=== PATIENT | female | born 1980 | race Caucasian/White ===

== ENCOUNTER 2018-07-04 09:22 | Emergency (ER) | payer SELFPAY ==
[2018-07-04 09:23] VITALS: BP 117/82; PULSE 64; RESP 18; TEMP 36.6; O2SAT 100; BMI 26.0
[2018-07-04] MEDS: Lidocaine/Epi/Tetracaine 50 ML 1 APPLIC TOPICAL (09:56)
--- NOTE | 2018-07-04 11:44 | ED.VISSUMM ---
- ER Visit Summary Date of Service: 07/04/18 Chief Complaint: MRSA infection in the right calf surgical wound History of Present Illness: The patient is a 38 F no senior past medical history. Approximately a month ago had an excision of the right calf melanoma by Dr. Bond the spice cleaner. Patient initially did well then developed an MRSA infection at the site. Has been on different antibiotics and currently on doxycycline. She has been on that now for 2 weeks of a 4 week course. She has pus like discharge. Physical Examination: Well appearing female vital signs are stable afebrile. Does not look septic or toxic. No acute distress. H EENT exam unremarkable. Neck nontender. Lungs clear to auscultation bilaterally. Heart regular rhythm no murmur. Abdomen soft nontender. Moving all 4 extremities. Neurovascularly intact. Right medial proximal calf is a surgical wound. With puslike drainage. There is tenderness to the wound. There is indurated tissue. There is no cellulitis. There is no lymphangitic streaking. Otherwise exam is unremarkable. Test Results: None Emergency Department Course and Treatment: Wound was locally anesthetized with topical let then subcu lidocaine. I made a 1-2 cm incision in the prior surgical site. I then probed and there was no pus pocket. I placed 1/4 inch gauze to leave the wound open to help it drain. I was unable to express any significant amount of pus. Patient tolerated procedure well. Treatment Plan: I spoke with Dr. Bond. He is available today in the office for the patient to follow-up. She will continue her doxycycline since it has some of the best coverage for MRSA. She will follow up with him in the office. Disposition: Discharge Impression: MRSA infection of recent melanoma resection site. Incision and drainage by ER. This note was generated with [employer] dictation software. It may contain incorrect words, spelling, and punctuation that were not noted in review of the chart prior to signing ED Disposition - Plan for ED Patient: Chief Complaint: Cellulitis Referrals: Abiodun Harmon [Primary Care Provider] -
--- NOTE | 2018-07-04 11:47 | ED.DCSUM_ITS ---
- ER Visit Summary Date of Service: 07/04/18 Chief Complaint: MRSA infection in the right calf surgical wound History of Present Illness: The patient is a 38 F no senior past medical history. Approximately a month ago had an excision of the right calf melanoma by Dr. 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 Patient initially did well then developed an MRSA infection at the site. Has been on different antibiotics and currently on doxycycline. She has been on that now for 2 weeks of a 4 week course. She has pus like discharge. Physical Examination: Well appearing female vital signs are stable afebrile. Does not look septic or toxic. No acute distress. H EENT exam unremarkable. Neck nontender. Lungs clear to auscultation bilaterally. Heart regular rhythm no murmur. Abdomen soft nontender. Moving all 4 extremities. Neurovascularly intact. Right medial proximal calf is a surgical wound. With puslike drainage. There is tenderness to the wound. There is indurated tissue. There is no cellulitis. There is no lymphangitic streaking. Otherwise exam is unremarkable. Test Results: None Emergency Department Course and Treatment: Wound was locally anesthetized with topical let then subcu lidocaine. I made a 1-2 cm incision in the prior surgical site. I then probed and there was no pus pocket. I placed 1/4 inch gauze to leave the wound open to help it drain. I was unable to express any significant amount of pus. Patient tolerated procedure well. Treatment Plan: I spoke with Dr. Bond. He is available today in the office for the patient to follow-up. She will continue her doxycycline since it has some of the best coverage for MRSA. She will follow up with him in the office. Disposition: Discharge Impression: MRSA infection of recent melanoma resection site. Incision and drainage by ER. This note was generated with [employer] dictation software. It may contain incorrect words, spelling, and punctuation that were not noted in review of the chart prior to signing ED Disposition - Plan for ED Patient: Chief Complaint: Cellulitis Referrals: Abiodun Harmon [Primary Care Provider] -
--- NOTE | 2018-07-04 11:50 | ED.DEP ---
ED Disposition - Plan for ED Patient: Disposition: Home or Assisted Living Chief Complaint: Cellulitis Referrals: Stevenson Bond [NON-STAFF] - As soon as possible Additional Instructions: Continue current antibiotics. Follow-up with Dr. Bond today if at all possible.
[2018-07-04 12:15] VITALS: PULSE 72; RESP 16; O2SAT 100
== END 2018-07-04 12:16 | disposition home or self-care (01) ==
PROVIDERS: Emergency Provider Emergency Medicine; Family Provider Family Medicine; PCP Family Medicine
DX: T81.4XXA Infection following a procedure, initial encounter (principal); B95.62 Methicillin resistant Staphylococcus aureus infection as the cause of diseases classified elsewhere; Z79.899 Other long term (current) drug therapy; Z85.820 Personal history of malignant melanoma of skin
CPT/HCPCS: 10060; 99285

== ENCOUNTER → 2019-01-04 16:02 | Outpatient (CLI) | payer SELFPAY ==
[2019-01-09 11:09] LABS: HPV Reflexed? NOT INDICATED
== END ==
PROVIDERS: Visit Provider Obstetrics & Gynecology
DX: Z12.4 Encounter for screening for malignant neoplasm of cervix (principal)
CPT/HCPCS: 88175; G0145

== ENCOUNTER → 2019-01-15 13:26 | Outpatient (CLI) | payer SELFPAY ==
[2019-01-15 17:28] LABS: Hematocrit 39.6 % (37-47); Hemoglobin 13.2 g/dl (12.0-15.0); Mean Corp Hgb Conc 33.3 g/gl (32-36); Mean Corpuscular Hgb 30.3 pg (27.0-32.0); Mean Corpuscular Volume 90.8 fL (81-99); Mean Platelet Vol. 10.4 fl (6.2-12.0); Platelet Count 281 K/mm3 (150-450); RBC Distribution Width CV 12.4 % (11.6-14.6); RBC Distribution Width SD 41.3 fl (35.1-43.9); Red Blood Count 4.36 M/mm3 (4.2-5.4); Scan Indicated on CBC? Y/N NO; White Blood Count 7.1 K/mm3 (4.4-11.0)
[2019-01-15 17:49] LABS: ALB/GLOB Ratio 1.2 RATIO (0.9-2.4); AST(SGOT) 13 U/L (15-37); Alanine Aminotransfer ALT/SGPT 19 U/L (13-56); Alkaline Phosphatase 80 U/L (45-117); Anion Gap 3 (5-15); BUN 18 mg/dL (7-18); BUN/Creat Ratio 25.1 RATIO (10-20); Calcium,Total 8.4 mg/dL (8.5-10.1); Chloride 107 mmol/L (98-107); Creatinine, Serum 0.72 mg/dL (0.55-1.02); EST Glomerular Filtration Rate 96 mL/min (>60); Est Glom Filt Rate - Afr Amer 117 mL/min (>60); Globulin 3.2 g/dL (2.2-4.2); Glucose 85 mg/dL (74-106); Potassium 3.6 mmol/L (3.5-5.1); Protein, Total 7.2 g/dL (6.4-8.2); Sodium Level 137 mmol/L (136-145); Thyroid Stim Hormone (TSH) 1.57 uIU/mL (0.358-3.74)
== END ==
PROVIDERS: Visit Provider Obstetrics & Gynecology
DX: G47.00 Insomnia, unspecified (principal); N39.0 Urinary tract infection, site not specified
CPT/HCPCS: 36415; 80053; 84443; 85027; 87086; 87088; 87186

== ENCOUNTER 2025-05-06 13:57 | Emergency (ER) | payer OTHER, SELFPAY ==
[2025-05-06 13:57] VITALS: BP 115/83; PULSE 87; RESP 18; TEMP 36.8; O2SAT 100; BMI 23.7
--- NOTE | 2025-05-06 15:13 | EX.ED.DYSGE1 ---
HPI History of Present Illness Chief Complaint: Complaint Informant: patient Onset/Context/Timing Onset: Days Context: Gradual Onset Timing: Continuous Quality: Dull Location: Bilateral flank Worsened by: Nothing Relieved by: Nothing Narrative Narrative: Patient presents with kidney pain that has been getting worse over the past few days. Patient states it is gradually getting worse. Patient describes it as dull. Patient states it is worse on the right but is also on the left. Patient states nothing makes it worse and nothing makes it better. Patient denies any dysuria or hematuria. Patient denies any fevers or chills. Patient does admit to a mild sore throat. Patient admits to some nausea but denies any vomiting. PFSH PFSH Medical History FH: cholecystectomy Right knee skin infection Melanoma Medical History no medical history Home Medications ?Medication ?Instructions ?Recorded ?Last Taken ?Type loratadine-pseudoephedrine ER 10 1 tab PO DAILY 02/24/16 07/03/18 History mg-240 mg tablet,extended [id number] (Loratadine-D) multivitamin (Daily Multiple 1 ea PO DAILY 02/24/16 07/03/18 History tablet) omeprazole 20 mg capsule,delayed 20 mg PO DAILY 02/24/16 07/03/18 History release dextroamphetamine-amphetamine ER 1 cap PO 05/06/25 Unknown History 30 mg 24hr capsule,extend release hydrocodone-acetaminophen 5-325mg 1 tab PO Q6H PRN PRN Pain 3 days 05/06/25 Unknown Rx 5mg-325mg #10 TABLETS Allergy/AdvReac Type Severity Reaction Status Date / Time No Known Allergies Allergy Verified 05/06/25 14:00 Family History no significant family his Surgical History History of appendectomy H/O tubal ligation Surgical History no surgical history Social History Smoking Status: Former smoker ROS ROS ED Constitutional Constitutional ED: Denies chills or fever(s) Eyes Eyes: Denies blurry vision or change in vision ENT ENT ED: Reports sore throat; Denies rhinorrhea Cardiovascular Cardiovascular: Denies chest pain or palpitations Respiratory/Chest Respiratory/Chest: Denies cough or dyspnea Gastrointestinal Gastrointestinal: Reports nausea; Denies vomiting Genitourinary Genitourinary ED: Denies dysuria or hematuria Musculoskeletal Musculoskeletal: Reports back pain; Denies neck pain Integumentary Denies abscess or rash Neurologic Neurologic: Denies headache(s) or weakness Allergic/Immunologic Allergic/Immunologic ED: Denies mouth swelling or urticaria EXAM Physical Exam Const Vital Signs: 05/06/25 13:57 05/06/25 15:57 05/06/25 17:00 Temperature 98.3 F Temperature Source Oral Pulse Rate 87 68 80 Respiratory Rate 18 Blood Pressure 115/83 H 110/72 110/85 H Blood Pressure Mean 93 84 93 Pulse Ox 100 100 Oxygen Delivery Method Room Air Nasal Cannula Oxygen Flow Rate (L/min) 4 05/06/25 18:37 Temperature 98.3 F Temperature Source Pulse Rate 80 Respiratory Rate 18 Blood Pressure 110/85 H Blood Pressure Mean 93 Pulse Ox 100 Oxygen Delivery Method Oxygen Flow Rate (L/min) Positive well nourished and well developed General Appearance ED: well developed and NAD HEENT Reports moist mucous membranes Neck supple and no JVD Resp normal respiratory effort and clear to auscultation bilaterally Cardio regular rate and regular rhythm GI non-tender and non-distended Palpation: soft Back/Spine Back/Spine Narrative: There is no midline lumbar tenderness. There is no edema or ecchymosis. Range of motion was limited in all motions of the entire spine secondary to pain. Straight leg raises were negative bilaterally. General Back: CVA tenderness bilateral (Mild, right worse than left) Extremity normal to inspection General Extremety ED: Negative for edema or tenderness General Extremity: Negative for edema Neuro oriented x3, CN's II-XII intact bilaterally and no sensory deficits noted Sensorium / Orientation: alert Motor Exam: strength 5/5 throughout Psych mental status grossly normal MDM MDM MDM Narrative Medical decision making narrative: Differential diagnosis includes ureteral calculus, pyelonephritis, musculoskeletal pain, electrolyte abnormality, kidney injury. CBC will be obtained to assess for leukocytosis and anemia. Basic metabolic profile will be obtained to assess for electrolyte abnormality and renal function. Urinalysis will be obtained to assess for urinary tract infection and hematuria. CT scan of the abdomen and pelvis will be obtained to assess for ureteral calculus and pyelonephritis. Serum hCG will be obtained to assess for . History & Record Review Additional record(s) reviewed:: Prior ED visit and Prior labs Lab Data Attestation: I reviewed the patient's lab results. Lab results narrative: CBC was reviewed and was within normal. Basic metabolic profile was reviewed and was within normal limits. Serum hCG was reviewed and was negative. Urinalysis was reviewed. There are positive nitrites and 1+ bacteria. There are 05 white blood cells. Leukocyte esterase was negative. Labs: Laboratory Results - last 24 hr 05/06/25 05/06/25 05/06/25 14:18 14:19 15:31 WBC 7.2 RBC 4.23 Hgb 12.8 Hct 37.9 MCV 89.6 MCH 30.3 MCHC 33.8 RDW Std Deviation 38.6 RDW Coeff of Issa 11.9 Plt Count 275 MPV 10.2 Immature Gran % (Auto) 0.100 Neut % (Auto) 57.2 Lymph % (Auto) 31.6 [place] % (Auto) 7.7 Eos % (Auto) 2.8 Baso % (Auto) 0.6 Absolute Neuts (auto) 4.1 Absolute Lymphs (auto) 2.26 Nucleated RBC % 0 Sodium 139 Potassium 3.4 Chloride 104 Carbon Dioxide 23.9 Anion Gap 11 BUN 16 Creatinine 0.72 Estim Creat Clear Calc 93.34 Est GFR (MDRD) Non-Af 106 BUN/Creatinine Ratio 22.5 H Glucose 77 Calcium 9.0 Serum , Qual NEGATIVE Urine Color Yellow Urine Clarity Clear Urine pH 6.0 Ur Specific [place] 1.025 Urine Protein 30 H Urine Glucose (UA) Normal Urine Ketones Negative Urine Occult Blood Negative Urine Nitrite Positive H Urine Bilirubin Negative Urine Urobilinogen Normal Ur Leukocyte Esterase Negative Urine RBC 0-5 SEEN Urine WBC 0-5 SEEN Ur Squamous Epith Cells 0-5 SEEN Urine Bacteria 1+ Urine Mucus 2+ Radiography Diagnostic Testing: Clinical Impression(s) from Imaging Studies Abdomen/Pelvis CT 05/06/25 15:19 IMPRESSION: No bowel obstruction or active inflammatory process identified. No urolithiasis or hydroureteronephrosis on either side. Reading Location: [facility] CT scan of the abdomen and pelvis was obtained. There is no evidence of bowel obstruction or perforation. There is no ureteral calculus or hydronephrosis noted. There is no free air or free fluid. This was interpreted by the radiologist and was also independently reviewed by myself. Treatment and Re-Evaluation :: Patient was given IV fluids and Toradol. Patient was advised of her findings. Patient was advised that this could be musculoskeletal pain. Patient was instructed to take Tylenol or ibuprofen as needed for pain. Patient was instructed to follow-up with her primary care physician in 5 to 7 days for further evaluation. Patient understood and was agreeable with the plan. All questions were answered. Discharge Plan Triage Chief Complaint: Complaint ED Provider: Raza Estrella Dx/Rx/DC Orders Clinical Impression: Bilateral flank pain, Elevated blood pressure reading Instructions: ED Flank Pain, Uncertain Cause Prescriptions: New hydrocodone-acetaminophen 5-325 mg tablet 1 tab PO Q6H PRN PRN (Reason: Pain) 3 Days Qty: 10 0RF No Action multivitamin [Daily Multiple] 1 EACH tablet 1 ea PO DAILY loratadine-pseudoephedrine [Loratadine-D] 1 TABLET tablet 1 tab PO DAILY omeprazole 20 MG capsule 20 mg PO DAILY dextroamphetamine-amphetamine 30 mg capsule,extended release 24hr 1 cap PO Primary Care Provider: Care Physician,No Primary Referrals: Care Physician,No Primary [Primary Care Provider] - Print Language: Mohawk Disposition Disposition: Home, Self Care Discharge Date/Time: 05/06/25 18:53
--- NOTE | 2025-05-06 15:19 | CT_ITS ---
PROCEDURE: ABDOMEN/PELVIS WITHOUT CONT 05/06/2025 REASON FOR EXAM: FLANK PAIN TECHNIQUE: ABDOMEN/PELVIS WITHOUT CONT Noncontrast technique limits evaluation of the abdominal and pelvic viscera. Coronal and Sagittal reconstruction series were provided. One or more dose reduction techniques were used (e.g., Automated exposure control, adjustment of the mA and/or kV according to patient size, use of iterative reconstruction technique). RADIATION DOSE SUMMARY: CTDlvol: 6.17 mGy DLP: 291.1 mGycm COMPARISON: None. FINDINGS: Lung bases: Clear. Liver: Unremarkable. Gallbladder: Surgically absent. Spleen: Normal size and morphology. Pancreas: Unremarkable. Adrenals: Unremarkable. Kidneys: Normal in size. No urolithiasis or hydroureteronephrosis identified on either side. Few scattered pelvic phleboliths noted. Bladder: Unremarkable, no bladder calculus is seen. Reproductive Organs: Uterus and adnexae appear within normal limits. Bowel: Unremarkable. No evidence of obstruction or active inflammatory process. Appendix is surgically absent with pericecal chain suture material. Lymph nodes: No suspicious lymph node enlargement. Vasculature: The abdominal aorta and IVC contours are normal. Noncontrast technique otherwise limits evaluation. Peritoneum / Retroperitoneum: No ascites or free air. Bones: No significant abnormality. CT/Abdomen/Pelvis without Cont IMPRESSION: No bowel obstruction or active inflammatory process identified. No urolithiasis or hydroureteronephrosis on either side. Reading Location: [id number]
[2025-05-06] MEDS: 0.9% Normal Saline (1000mL) 1,000 ML 1000 ML IV (15:52)
[2025-05-06 15:57] VITALS: BP 110/72; PULSE 68; O2SAT 100
[2025-05-06 15:57] LABS: Hematocrit 37.9 % (37-47); Hemoglobin 12.8 g/dL (12.0-15.0); Immature Granulocytes Count 0.010 X10^3/uL (0.0-0.0); Mean Corp Hgb Conc 33.8 g/dL (32-36); Mean Corpuscular Volume 89.6 fL (81-99); Mean Platelet Vol. 10.2 fl (6.2-12.0); NRBC Flagged by Analyzer 0 % (0-5); Platelet Count 275 K/mm3 (150-450); RBC Distribution Width CV 11.9 % (11.6-14.6); RBC Distribution Width SD 38.6 fl (35.1-43.9); Red Blood Count 4.23 M/mm3 (4.2-5.4); White Blood Count 7.2 K/mm3 (4.4-11.0)
[2025-05-06 15:59] LABS: Color, Urine Yellow (Yellow); Glucose, Dipstick Normal (Normal); Ketone-Dipstick Negative (Negative); Leukocyte Esterase-Dipstick Negative /ul (Negative); Nitrite-Dipstick Positive (Negative); Occult Blood-Urine Negative /ul (Negative); Protein-Dipstick 30 mg/dl (Negative); Specific Gravity, Urine 1.025 (1.002-1.030); Urine Bilirubin Dipstick Negative (Negative)
[2025-05-06 16:23] LABS: Anion Gap 11 (5-15); BUN 16 mg/dL (4-19); BUN/Creat Ratio 22.5 RATIO (10-20); Calcium,Total 9.0 mg/dL (7.6-11.0); Carbon Dioxide 23.9 mmol/L (21.0-32.0); Chloride 104 mmol/L (98-108); Estimated Creatinine Clearance 93.34 ml/min (50-250); Glucose 77 mg/dL (70-99); Potassium 3.4 mmol/L (3.3-5.1)
[2025-05-06 16:48] LABS: Internal QC Validated? YES +Cl - CLEAR BKGD; Pregnancy, Serum, hCG Quali. NEGATIVE Negative
[2025-05-06 16:49] LABS: Record Kit Lot#, Serum Preg. 962302
[2025-05-06 17:00] VITALS: BP 110/85; PULSE 80
[2025-05-06 17:07] LABS: Red Blood Cells-Urine 0-5 SEEN /hpf (0-5)
[2025-05-06 17:08] LABS: Mucous, Urine 2+ /hpf (<or=2+); Squamous Epithelial Cells - UA 0-5 SEEN /hpf (5-10)
[2025-05-06 18:37] VITALS: BP 110/85; PULSE 80; RESP 18; TEMP 36.8; O2SAT 100
== END 2025-05-06 18:53 | disposition home or self-care (01) ==
PROVIDERS: Emergency Provider Emergency Medicine; Visit Provider Emergency Medicine
DX: R10.9 Unspecified abdominal pain (principal); R03.0 Elevated blood-pressure reading, without diagnosis of hypertension; Z87.891 Personal history of nicotine dependence
CPT/HCPCS: 74176; 80048; 81001; 84703; 85025; 96361; 96374; 99283; A4216

== ENCOUNTER → 2025-05-13 | Outpatient (CLI) | payer OTHER, SELFPAY ==
[2025-05-16 00:07] LABS: HPV APTIMA, High Risk Negative (Negative)
[2025-05-16 06:08] LABS: Chlamydia By Nucleic Acid AMP Negative (Negative); Gonococcus By Nucleic Acid AMP Negative (Negative)
== END | disposition home or self-care (01) ==
LOC: LABSPEC 16:13
PROVIDERS: Referring Provider Nurse Practitioner Family; Visit Provider Nurse Practitioner Family
DX: Z12.4 Encounter for screening for malignant neoplasm of cervix (principal); Z11.3 Encounter for screening for infections with a predominantly sexual mode of transmission
CPT/HCPCS: 87491; 87591; 87624; 88175; G0145

== ENCOUNTER → 2025-05-17 | Outpatient (CLI) | payer OTHER, SELFPAY ==
--- NOTE | 2025-05-17 08:30 | BI_ITS ---
EXAM: SCRN MAMM (CAD)W/NATHAN BILAT DATE: 05/17/2025 CLINICAL HISTORY: F, Age 44 y/o , SCREENING BREAST CANCER TECHNIQUE: SCRN MAMM (CAD)W/NATHAN BILAT COMPARISON: Baseline examination, no priors. FINDINGS: TISSUE DENSITY: There are scattered areas of fibroglandular density. Bilateral Breast Mammographic Findings: No significant masses, calcifications or other abnormalities are identified. BI/SCRN MAMM (CAD)W/NATHAN BILAT IMPRESSION: There is no mammographic evidence of malignancy. OVERALL FINAL ASSESSMENT BI-RADS 1: NEGATIVE. RECOMMENDATION: Routine annual follow-up in 1 Year A letter with findings and recommendations will be mailed to the patient. Reading Location: [id number]
[2025-05-17 09:55] LABS: Hematocrit 40.3 % (37-47); Hemoglobin 13.5 g/dL (12.0-15.0); Immature Granulocytes Count 0.010 X10^3/uL (0.0-0.0); Mean Corp Hgb Conc 33.5 g/dL (32-36); Mean Corpuscular Volume 90.2 fL (81-99); Mean Platelet Vol. 9.7 fl (6.2-12.0); NRBC Flagged by Analyzer 0 % (0-5); Platelet Count 305 K/mm3 (150-450); RBC Distribution Width CV 11.8 % (11.6-14.6); RBC Distribution Width SD 38.5 fl (35.1-43.9); Red Blood Count 4.47 M/mm3 (4.2-5.4); White Blood Count 5.3 K/mm3 (4.4-11.0)
--- OUTSIDE RECORDS SUMMARY | 2025-05-17 10:55 | XMS RPT_ITS | CCD ---
Author Organization [facility] Care Team Providers Care Warp Placer Name Role Phone Required, No Pcp Unavailable Unavailable Ryan Paulino Unavailable Unavailable Stephen Rosa Unavailable Unavailable Lora, Ms. Ryan Salcido Attending Alfonso Rivera, Ms. Yanet Noel Attending Unavailable AMANDA ADAN Attending Unavailable BRITTON, PHYSICIAN Primary Care Unavailable BASSEM URRUTIA Admitting Unavailab GLENN Farr Consulting Unavailab lucero JARQUIN, PHYSICIAN Primary Care Unavailable KHOA WISEMAN Attending Unavailab AMANDA Nguyen Referring Unavailable Dr. Raza Estrella DO Emergency Provider [phone] Care Physician, No Primary Primary Care Provider Unavailable Dr. Raza Estrella DO Attending Provider [phone] Cindy Gore Attending Provider Care Physician, No Primary Referring Provider Un available Care Physician, No Primary Primary Care Unava ilable Cindy Menchaca Attending Unavailable Care Physician, No Primary Referring Unava ilable Care Physician, No Primary Primary Care Unava ilRaza Rowland Attending Unavailable Care Physician, No Primary Primary Care Unava ilable Cindy Menchaca Referring Unavailable Cindy Menchaca Attending Unavailable Medications Current Medications Medication Drug Class(es) Dates Sig (Normalized) Sig (Original) acetaminophen 325 mg / HYDROcodone bitartrate 5 mg oral tablet (2 sources) Opioid Agonist Start: 05-06-2025 take 1 tablet by mouth every six hours as needed for pain Hydrocodone-Aceta minophen 5-325 mg tablet Active 1 {tbl} PO EVERY 6 HOURS NEEDED as needed for Pain 10 3 0 May 06, 2025 Bilateral flank pain Unspecified abdominal pain 24 hr amphetamine aspartate 7.5 mg / amphetamine sulfate 7.5 mg / dextroamphetamine saccharate 7.5 mg / dextroamphetamine sulfate 7.5 mg extended release oral capsule (2 sources) Central Nervous System Stimulant Start: 05-06-2025 Dextroamphetamine -Amphetamine 30 mg capsule,extended release 24hr Active 1 NMA PO May 06, 2025 12:00am Cetirizine (3 sources) Histamine-1 Receptor Antagonist ZyrTEC Quantity: 0 Refills: 0 Ordered: 14-Mar-2023 Kaitlynn Larios Generic Substitution Allowed take 1 tablet by mouth once samara y ZyrTEC 10 mg oral tablet ; 1 tab(s) orally once a day Quantity: 0 Refills: 0 Ordered: 13-Apr-2021 Ramesh Leary Status: Discontinued Generic Substitution Allowed ZyrTEC Quantity: 0 Refills: 0 Ordered: 20-May-2020 Kaitlynn Larios Generic Substitution Allowed levoFLOXacin 500 mg oral tablet (1 source) Quinolone Antimicrobial Start: 04-13-2021 End: 04-22-2021 take 1 tablet by mouth once daily levoFLOXacin 500 mg oral tablet ; 1 tab(s) orally once a day Quantity: 10 Refills: 0 Ordered: 13-Apr-2021 Stephen Rosa Start: 13-Apr-2021 End: 22-Apr-2021 Generic Substitution Allowed Comments: Avoid prolonged or excessive exposure to direct and/or artificial sunlight while taking this medication.Do not take dairy products, antacids, or iron preparations within one hour of this medication.Finish all this medication unless otherwise directed by prescriber.May cause drowsiness or dizziness.Medication should be taken with plenty of water. Comment on above: Avoid prolonged or e xcessive exposure to direct and/or artificial sunlight while taking this medication.Do not take dairy products, antacids, or iron preparations within one hour of this medication.Finish all this medication unless otherwise directed by prescriber.May cause drowsiness or dizziness.Medication should be taken with plenty of water. 24 hr loratadine 10 mg / pseudoephedrine sulfate 240 mg extended release oral tablet (2 sources) alpha-Adrenergic Agonist Start: 02-24-2016 take 1 tablet by mouth once daily Loratadine-Pseudoephedri ne (Claritin-D 24 Hr) 1 TABLET tablet Active 1 {tbl} PO DAILY February 24, 2016 12:00am Multivitamin (Daily Multiple Vitamin) 1 EACH tablet (2 sources) Start: 02-24-2016 take 1 tablet by mouth once daily Multivitamin (Daily Multiple Vitamin) 1 EACH tablet Active 1 NMA PO DAILY February 24, 2016 12:00am omeprazole 20 mg delayed release oral capsule (5 sources) Proton Pump Inhibitor Start: 02-24-2016 take 1 capsule by mouth once daily Omeprazole 20 MG capsule Active 20 mg PO DAILY February 24, 2016 12:00am omeprazole Quant ity: 0 Refills: 0 Ordered: 14-Mar-2023 Kaitlynn Larios Generic Substitution Allowed take 1 capsule by mouth once saúl ly omeprazole 10 mg oral delayed release capsule ; 1 cap(s) orally once a day Quantity: 0 Refills: 0 Ordered: 13-Apr-2021 Bowling, Melanic Status: Discontinued Generic Substitution Allowed ondansetron 4 mg disintegrating oral tablet (2 sources) Serotonin-3 Receptor Antagonist Start: 06-09-2023 take 1 tablet by mouth every six hours ondansetron 4 mg oral tablet, disintegrating ; 1 tab(s) orally every 6 hours Quantity: 10 Refills: 0 Ordered: 09-Jun-2023 Ryan Paulino Start: 09-Jun-2023 Generic Substitution Allowed Start: 04-13-2021 End: 04-15-2021 take 1 tablet by mouth three times daily ondansetron 4 mg oral tablet ; 1 tab(s) orally 3 times a day x 3 days Quantity: 9 Refills: 0 Ordered: 13-Apr-2021 Stephen Rosa Start: 13-Apr-2021 End: 15-Apr-2021 Generic Substitution Allowed pantoprazole 40 mg oral granules (1 source) Proton Pump Inhibitor Start: 04-13-2021 End: 05-12-2021 pantoprazole 40 mg oral granule, delayed release ; 1 each orally once a day Quantity: 30 Refills: 0 Ordered: 13-Apr-2021 Stephen Rosa Start: 13-Apr-2021 End: 12-May-2021 Generic Substitution Allowed Comments: It is very important that you take or use this exactly as directed. Do not skip doses or discontinue unless directed by your doctor.Obtain medical advice before taking any non-prescription drugs as some may affect the action of this medication. Comment on above: It is very important that you take or use this exactly as directed. Do not skip doses or discontinue unless directed by your doctor.Obtain medical advice before taking any non-prescription drugs as some may affect the action of this medication. vitamin B12 (1 source) Vitamin B12 Vitamin B-12 Chema ntity: 0 Refills: 0 Ordered: 09-Jun-2023 Kailyn Merrill Generic Substitution Allowed Completed/Discontinued Medications Medication Drug Class(es) Dates Sig (Normalized) Sig (Original) Medrol Dosepak 4 mg oral tablet (1 source) Start: 06-09-2023 Medrol Dosepak 4 mg oral tablet ; Take as directed. Quantity: 1 Refills: 0 Ordered: 09-Jun-2023 Ryan Paulino Start: 09-Jun-2023 Generic Substitution Allowed Comments: It is very important that you take or use this exactly as directed. Do not skip doses or discontinue unless directed by your doctor.Obtain medical advice before taking any non-prescription drugs as some may affect the action of this medication.Take with food or milk. Comment on above: It is very important that you take or use this exactly as directed. Do not skip doses or discontinue unless directed by your doctor.Obtain medical advice before taking any non-prescription drugs as some may affect the action of this medication.Take with food or milk. Problems Problem Classification Problem Date Documented Date Episodic/Chronic Abdominal pain (3 sources) Flank pain; Translations: [Unspecified abdominal pain] Onset: 05-06-2025 05-06-2025 Episodic E Codes: Other specified and classifiable (2 sources) Exposure to other inanimate mechanical forces, initial encounter; Translations: [Exposure to other inanimate mechanical forces, initial encounter] Onset: 06-23-2024 Episodic E Codes: Place of occurrence (2 sources) Unspecified place in unspecified non-institutional (private) residence as the place of occurrence of the external cause; Translations: [Unspecified place in unspecified non-institutional (private) residence as the place of occurrence of the external cause] Onset: 06-23-2024 Episodic Immunizations and screening for infectious disease (3 sources) At risk of sexually transmitted infection ; Translations: [Contact with and (suspected) exposure to infections with a predominantly sexual mode of transmission] Onset: 05-13-2025 05-13-2025 Episodic Lymphadenitis (2 sources) Cervical lymphadenopathy; Translations: [Enlargement of lymph nodes] Onset: 06-09-2023 06-09-2023 Episodic Menstrual disorders (3 sources) Intermenstrual bleeding - irregular; Translations: [Excessive and frequent menstruation with irregular cycle] Onset: 05-13-2025 05-13-2025 Chronic Noninfectious gastroenteritis (2 sources) Colitis; Translations: [Other and unspecified noninfectious gastroenteritis and colitis] 04-13-2021 Episodic Nonspecific chest pain (2 sources) Chest pain 04-13-2021 Episodic Comment on above: CHEST PAIN Open wounds of extremities (2 sources) Laceration without foreign body, left foot, initial encounter; Translations: [Laceration without foreign body, left foot, initial encounter] Onset: 06-23-2024 Episodic Other circulatory disease (2 sources) Elevated blood pressure; Translations: [Elevated blood-pressure reading, without diagnosis of hypertension] 05-06-2025 Episodic Other injuries and conditions due to external causes (2 sources) Effects of high-pressure fluids, initial encounter; Translations: [Effects of high-pressure fluids, initial encounter] Onset: 06-23-2024 Episodic Other screening for suspected conditions (not mental disorders or infectious disease) (1 source) Encounter for other screening for malignant neoplasm of breast; Translations: [Encounter for other screening for malignant neoplasm of breast] Onset: 05-13-2025 Episodic Other skin disorders (2 sources) Neck swelling 06-09-2023 Episodic Comment on above: NECK SWELLING Other skin disorders (2 sources) Loss of hair; Translations: [Nonscarring hair loss, unspecified] 05-13-2025 Episodic Other skin disorders (1 source) Nonscarring hair loss, unspecified; Translations: [Nonscarring hair loss, unspecified] Onset: 05-13-2025 Episodic Other upper respiratory infections (1 source) Acute pharyngitis, unspecified; Translations: [Acute pharyngitis, unspecified] Onset: 06-09-2023 Episodic Spondylosis; intervertebral disc disorders; other back problems (1 source) Cervicalgia; Translations: [Cervicalgia] Onset: 06-09-2023 Episodic Unclassified (1 source) Lymphadenopathy of left cervical region 06-09-2023 Unclassified (2 sources) Low back pain, unspecified; Translations: [Low back pain, unspecified] Onset: 03-14-2023 Urinary tract infections (2 sources) Urinary tract infectious disease 04-13-2021 Episodic Comment on above: UTI Results Test Name Value Interpretation Reference Range Facility Wait Staff Office Visit Reporton 05-13-2025 Wait Staff Office Visit Report [facility] [address], [address] [place] [address] OFFICE VISIT Date of Service: 05/13/25 MR#: [id number] Acct: [id number] Name: JOAN TANG Rep #: [id number] : 1980 Provider: FELIPE Abdi Age/Sex: 44/F Location: [facility] Status: Signed Intake Vital Signs 07/04/18 09:23 05/06/25 13:57 05/13/25 11:30 05/13/25 11:36 Height 5 ft 6 in 5 ft 6 in 5 ft 6 in 5 ft 6 in Weight: 150 lb BMI 24.2 BP 104/72 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 Required: No Is patient in pain?: No Allergies No Known Allergies Allergy (Verified 05/13/25 11:30) Medications ???Medication ???Instructions ???Recorded ???Confirmed ???Type loratadine-pseudoephedri ne ER 10 1 tab PO DAILY 02/24/16 05/13/25 H istory mg-240 mg tablet,extended [id number] (Loratadine-D) multivitamin (Daily Multiple 1 ea PO DAILY 02/24/16 05/13/25 Hi story tablet) omeprazole 20 mg capsule,delayed 20 mg PO DAILY 02/24/16 05/13/25 H istory release dextroamphetamine-amphet amine ER 1 cap PO 05/06/25 05/13/25 History 30 mg 24hr capsule,extend release hydrocodone-acetaminophe n 5-325mg 1 tab PO Q6H PRN PRN Pain 3 days 05/06/25 05/13/25 Rx 5mg-325mg #10 TABLETS Is last menstrual period known: Yes Last Menstrual Period: 05/09/25 Post menopausal: No Patient : No : No Current gender identity: female Control Method: tubal PFSH Medical History FH: cholecystectomy Right knee skin infection Melanoma Surgical History History of appendectomy H/O tubal ligation Family History (Updated 05/13/25 @ 12:39 by Piedad Miles) Father Heart disease Social History adopted: No household members: none housing: house number of children: 2 service: No current occupational status: employed current occupation: [employer] current occupational exposures/hazards: No pets and animals: Yes pets and animals: dog(s) history of recent travel: No current gender identity: female Smoking Status: Former smoker second hand exposure: No alcohol intake: never substance use type: does not use well-balanced diet: daily or most days caffeine: Yes Type: coffee Number of servings: 1 eating out: rarely or never during the past year weight has: remained stable what type of physical activity do you participate in: other details: cardio frequency: daily guzman/bahai: Sabianism seatbelt use: always do you feel safe at home: Yes additional social history: History 2 Elective abortions Hx Para 2 Spontaneous abortions Hx # Term Pregnancies Ectopic pregnancies Hx # Pregnancies Multiple births # of living children 2 HPI Encounter for routine gynecological examination Details: JOAN TANG is a 44 year old who presents for annual exam and to establish care. She has a history of abnormal PAPs with a LEEP procedure being completed twice; once through [facility] () and her other one with Dr. Cortez. Her consequent PAPs (no HPVs ran) have come back normal. Last PAP being in 2019. Most recent LEEP in 2015. She reports she has recently noticed hair loss. She reports her periods over the past 6 months have been heavier, more painful with clots. Still regular in timing. Patient would like to be tested for STD's; has concerns with previous partner. Has not had routine screening labs in the past 2 years. Does not have a PCP currently. Last PAP: 12/2018; normal cytology; no HPV ran. History of abnormal PAP: 2016; LEEP completed; PAP in 2016, 2018 negative cytology. Last mammogram: Has never had History of abnormal mammogram: none Colon cancer screening: none Other preventative health care screenings: Primary Care Doctor: Seeking a PCP. Female Reproductive History Last Menstrual Period: 05/09/25 Cycle Length: 21-35 Bleeding Duration: 5 Questions: metorrhagia: No, sexually active: Yes (tubal), dyspareunia: No and PCB: No ROS Const Constitutional: Denies chills, fatigue, fever(s), headache(s) or weight loss Eyes Eyes: Denies change in vision ENT ENT: Denies dizziness Cardio Card: Denies chest pain at rest or palpitations Resp Resp: Denies cough GI GI: Denies abdominal pain, constipation or nausea : Denies difficulty voiding, dysuria, hematuria, nipple discharge, pelvic pain, prolapse symptoms, urinary incontinence, vaginal discharge, vaginal dryness, vaginal odor or vaginal pruritus Skin Skin/Breast: Denies alopecia, rash, breast mass, breast pain, breast skin changes or nipple discharge Neuro Neuro: Denies dizziness Psych Psych: Denies anxiety o (more content not included)... Normal [facility] Abdomen/Pelvis without Conto n 05-06-2025 Abdomen/Pelvis without Cont [facility] [address] [place] [id number] Abdomen/Pelvis without Cont MR#: [id number] Acct: [id number] Name: JOAN TANG Rep #: [id number] : 1980 F 44 From: Neftali Murdock MD PCP: Care Physician,No Primary Status: REG ER Study: Abdomen/Pelvis without Cont Date of Exam: 04/23 02/15 Exam# [id number] Ordering Dr: Raza Estrella DO PROCEDURE: ABDOMEN/PELVIS WITHOUT CONT 05/06/2025 REASON FOR EXAM: FLANK PAIN TECHNIQUE: ABDOMEN/PELVIS WITHOUT CONT Noncontrast technique limits evaluation of the abdominal and pelvic viscera. Coronal and Sagittal reconstruction series were provided. One or more dose reduction techniques were used (e.g., Automated exposure control, adjustment of the mA and/or kV according to patient size, use of iterative reconstruction technique). RADIATION DOSE SUMMARY: CTDlvol: 6.17 mGy DLP: 291.1 mGycm COMPARISON: None. FINDINGS: Lung bases: Clear. Liver: Unremarkable. Gallbladder: Surgically absent. Spleen: Normal size and morphology. Pancreas: Unremarkable. Adrenals: Unremarkable. Kidneys: Normal in size. No urolithiasis or hydroureteronephrosis identified on either side. Few scattered pelvic phleboliths noted. Bladder: Unremarkable, no bladder calculus is seen. Reproductive Organs: Uterus and adnexae appear within normal limits. Bowel: Unremarkable. No evidence of obstruction or active inflammatory process. Appendix is surgically absent with pericecal chain suture material. Lymph nodes: No suspicious lymph node enlargement. Vasculature: The abdominal aorta and IVC contours are normal. Noncontrast technique otherwise limits evaluation. Peritoneum / Retroperitoneum: No ascites or free air. Bones: No significant abnormality. CT/Abdomen/Pelvis without Cont IMPRESSION: No bowel obstruction or active inflammatory process identified. No urolithiasis or hydroureteronephrosis on either side. Reading Location: [id number] CC: Dr. Raza Estrella, DO; No Primary Care Physician Rail Assembler: Signed Normal [facility] Absolute lymphocyte countOrd ered By: Raza Estrella on 05-06-2025 Lymphocytes Auto (Unsp spec) [#/Vol] 2.26 10*3/uL 0.83-4.51 [facility] Absolute neutrophil countOrd ered By: Raza Estrella on 05-06-2025 Neutrophils (Bld) [#/Vol] 4.1 10*3/uL 2.0-7.7 [facility] Anion gap in Serum or Plasma Ordered By: Raza Estrella on 05-06-2025 Anion gap [Moles/Vol] 11 mmol/L 5-15 [facility] Automated lymphocyte count a s percentage of total leukocytesOrdered By: Raza Estrella on 05-06-2025 Lymphocytes/100 WBC Auto (Unsp spec) 31.6 % 19-41 [facility] BUN/creatinine ratioOrdered By: Raza Estrella on 05-06-2025 Urea nitrogen/Creatinine [Mass ratio] 22.5 mg/mg High 08-12 [facility] Basic Metabolic Profile (BMP )on 05-06-2025 BUN/CRE 22.5 RATIO High 08-12 [facility] Comment on above: Performed By: #### L 700.6800, L100.0100, L500.2500 #### [facility] [place], [address] Calcium [Mass/Vol] 9.0 mg/dL Normal 7.6-11.0 [facility] Comment on above: Performed By: #### L 700.6800, L100.0100, L500.2500 #### [facility] [address] [place], [address] Chloride [Moles/Vol] 104 mmol/L Normal 98-108 [facility] Comment on above: Performed By: #### L 700.6800, L100.0100, L500.2500 #### [facility] [address] [place], [address] CO2 [Moles/Vol] 23.9 mmol/L Normal 21.0-32.0 [facility] Comment on above: Performed By: #### L 700.6800, L100.0100, L500.2500 #### [facility] [address] [place], [address] Creatinine [Mass/Vol] 0.72 mg/dL Normal 0.70-1.20 [facility] Comment on above: Performed By: #### L 700.6800, L100.0100, L500.2500 #### [facility] [address] [place], [address] ECRCL 93.34 ml/min Normal 50-250 [facility] Comment on above: Performed By: #### L 700.6800, L100.0100, L500.2500 #### [facility] [address] [place], [address] GAP 11 Normal 5-15 [facility] Comment on above: Performed By: #### L 700.6800, L100.0100, L500.2500 #### [facility] [address] [place], [address] GFR/1.73 sq M.predicted among non-blacks MDRD (S/P/Bld) [Vol rate/Area] 106 mL/min/{1.73_m2} Normal >60 [facility] Comment on above: Result Comment: mL/m in/1.73m2 CKD-EPI Creatinine Equation (2020) Performed By: #### L 700.6800, L100.0100, L500.2500 #### [facility] [address] [place], [address] Glucose [Mass/Vol] 77 mg/dL Normal 70-99 [facility] Comment on above: Performed By: #### L 700.6800, L100.0100, L500.2500 #### [facility] [address] [place], [address] Potassium [Moles/Vol] 3.4 mmol/L Normal 3.3-5.1 [facility] Comment on above: Performed By: #### L 700.6800, L100.0100, L500.2500 #### [facility] [address] [place], [address] Sodium [Moles/Vol] 139 mmol/L Normal 133-145 [facility] Comment on above: Performed By: #### L 700.6800, L100.0100, L500.2500 #### [facility] [address] [place], [address] Urea nitrogen [Mass/Vol] 16 mg/dL Normal 4-19 [facility] Comment on above: Performed By: #### L 700.6800, L100.0100, L500.2500 #### [facility] [address] [place], [address] Basophil percentageOrdered B y: Raza Estrella on 05-06-2025 Basophils/100 WBC (Bld) 0.6 % 0-1 [facility] Bilirubin Test strip Ql (U)O rdered By: Raza Estrella on 05-06-2025 Bilirubin Ql (U) Negative Negative [facility] CBC W/Diff, Automatedon 04-23-2024 Absolute Lymph 2.26 X10 3/uL Normal 0.83-4.51 [facility] Comment on above: Performed By: #### L 700.6800, L100.0100, L500.2500 #### [facility] [address] [place], [address] Absolute Neut 4.1 X10 3/uL Normal 2.0-7.7 [facility] Comment on above: Performed By: #### L 700.6800, L100.0100, L500.2500 #### [facility] [address] [place], [address] Basophils/100 WBC (Bld) 0.6 % Normal 0-1 [facility] Comment on above: Performed By: #### L 700.6800, L100.0100, L500.2500 #### [facility] [address] [place], [address] Eosinophils/100 WBC (Bld) 2.8 % Normal 0-5 [facility] Comment on above: Performed By: #### L 700.6800, L100.0100, L500.2500 #### [facility] [address] [place], [address] Erythrocyte distribution width (RBC) [Ratio] 11.9 % Normal 11.6-14.6 [facility] Comment on above: Performed By: #### L 700.6800, L100.0100, L500.2500 #### [facility] [address] [place], [address] Hematocrit (Bld) [Volume fraction] 37.9 % Normal 37-47 [facility] Comment on above: Performed By: #### L 700.6800, L100.0100, L500.2500 #### [facility] [address] [place], [address] Hemoglobin (Bld) [Mass/Vol] 12.8 g/dL Normal 12.0-15.0 [facility] Comment on above: Performed By: #### L 700.6800, L100.0100, L500.2500 #### [facility] [address] [place], [address] IG% 0.100 Normal 0.0-0.9 [facility] Comment on above: Result Comment: IG% - Immature Granulocytes (promyelocytes, myelocytes and metamyelocytes) > 1% indicates that a LEFT SHIFT is Present. Performed By: #### L 700.6800, L100.0100, L500.2500 #### [facility] [address] [place], [address] Lymphocytes/100 WBC (Bld) 31.6 % Normal 19-41 [facility] Comment on above: Performed By: #### L 700.6800, L100.0100, L500.2500 #### [facility] [address] [place], [address] MCH (RBC) [Entitic mass] 30.3 pg Normal 27.0-32.0 [facility] Comment on above: Performed By: #### L 700.6800, L100.0100, L500.2500 #### [facility] [address] [place], [address] MCHC (RBC) [Mass/Vol] 33.8 g/dL Normal 32-36 [facility] Comment on above: Performed By: #### L 700.6800, L100.0100, L500.2500 #### [facility] [address] [place], [address] MCV (RBC) [Entitic vol] 89.6 fL Normal 81-99 [facility] Comment on above: Performed By: #### L 700.6800, L100.0100, L500.2500 #### [facility] [address] [place], [address] Monocytes/100 WBC (Bld) 7.7 % Normal 0-10 [facility] Comment on above: Performed By: #### L 700.6800, L100.0100, L500.2500 #### [facility] [address] [place], [place], [address] Neutrophils/100 WBC (Bld) 57.2 % Normal 47-70 [facility] Comment on above: Performed By: #### L 700.6800, L100.0100, L500.2500 #### [facility] [address] [place], [address] Nucleated RBC (Bld) [#/Vol] 0 10*3/uL Normal 0-5 [facility] Comment on above: Performed By: #### L 700.6800, L100.0100, L500.2500 #### [facility] [address] [place], [address] Platelet mean volume (Bld) [Entitic vol] 10.2 fL Normal 6.2-12.0 [facility] Comment on above: Performed By: #### L 700.6800, L100.0100, L500.2500 #### [facility] [address] [place], [address] Platelets (Bld) [#/Vol] 275 10*3/uL Normal 150-450 [facility] Comment on above: Performed By: #### L 700.6800, L100.0100, L500.2500 #### [facility] [address] [place], [address] RBC (Bld) [#/Vol] 4.23 10*6/uL Normal 4.2-5.4 [facility] Comment on above: Performed By: #### L 700.6800, L100.0100, L500.2500 #### [facility] [address] [place], [address] RDW SD 38.6 fl Normal 35.1-43.9 [facility] Comment on above: Performed By: #### L 700.6800, L100.0100, L500.2500 #### [facility] [address] [place], [address] WBC (Bld) [#/Vol] 7.2 10*3/uL Normal 4.4-11.0 [facility] Comment on above: Performed By: #### L 700.6800, L100.0100, L500.2500 #### [facility] [address] [place], [address] Carbon dioxide, total [Moles /volume] in Central venous bloodOrdered By: Raza Estrella on 05-06-2025 CO2 [Moles/Vol] 23.9 mmol/L 21.0-32.0 [facility] Chloride assayOrdered By: Charly Estrella on 05-06-2025 Chloride [Moles/Vol] 104 mmol/L 98-108 [facility] Emergency Department Summary on 05-06-2025 Emergency Department Summary [facility] Medical Records Department [address] [place] [address] Emergency Department Summary 05/06/25 MR#: [id number] Acct: [id number] Name: JOAN TANG Rep #: [id number] : 1980 44 From: Raza Estrella DO PCP: Care Physician,No Primary Status:DEP ER Location: ED HPI History of Present Illness Chief Complaint: Complaint Informant: patient Onset/Context/Timing Onset: Days Context: Gradual Onset Timing: Continuous Quality: Dull Location: Bilateral flank Worsened by: Nothing Relieved by: Nothing Narrative Narrative: Patient presents with "kidney pain" that has been getting worse over the past few days. Patient states it is gradually getting worse. Patient describes it as dull. Patient states it is worse on the right but is also on the left. Patient states nothing makes it worse and nothing makes it better. Patient denies any dysuria or hematuria. Patient denies any fevers or chills. Patient does admit to a mild sore throat. Patient admits to some nausea but denies any vomiting. [facility] Medical History FH: cholecystectomy Right knee skin infection Melanoma Medical History no medical history Home Medications ???Medication ???Instructions ???Recorded ???Last Taken ???Type loratadine-pseudoephedri ne ER 10 1 tab PO DAILY 02/24/16 07/03/18 H istory mg-240 mg tablet,extended [id number] (Loratadine-D) multivitamin (Daily Multiple 1 ea PO DAILY 02/24/16 07/03/18 Hi story tablet) omeprazole 20 mg capsule,delayed 20 mg PO DAILY 02/24/16 07/03/18 H istory release dextroamphetamine-amphet amine ER 1 cap PO 05/06/25 Unknown History 30 mg 24hr capsule,extend release hydrocodone-acetaminophe n 5-325mg 1 tab PO Q6H PRN PRN Pain 3 days 05/06/25 Unknown Rx 5mg-325mg #10 TABLETS Allergy/AdvReac Type Severity Reaction Status Date / Time No Known Allergies Allergy Verified 05/06/25 14:00 Family History no significant family his Surgical History History of appendectomy H/O tubal ligation Surgical History no surgical history Social History Smoking Status: Former smoker ROS ROS ED Constitutional Constitutional ED: Denies chills or fever(s) Eyes Eyes: Denies blurry vision or change in vision ENT ENT ED: Reports sore throat; Denies rhinorrhea Cardiovascular Cardiovascular: Denies chest pain or palpitations Respiratory/Chest Respiratory/Chest: Denies cough or dyspnea Gastrointestinal Gastrointestinal: Reports nausea; Denies vomiting Genitourinary Genitourinary ED: Denies dysuria or hematuria Musculoskeletal Musculoskeletal: Reports back pain; Denies neck pain Integumentary Denies abscess or rash Neurologic Neurologic: Denies headache(s) or weakness Allergic/Immunologic Allergic/Immunologic ED: Denies mouth swelling or urticaria EXAM Physical Exam Const Vital Signs: 05/06/25 13:57 05/06/25 15:57 05/06/25 17:00 Temperature 98.3 F Temperature Source Oral Pulse Rate 87 68 80 Respiratory Rate 18 Blood Pressure 115/83 H 110/72 110/85 H Blood Pressure Mean 93 84 93 Pulse Ox 100 100 Oxygen Delivery Method Room Air Nasal Cannula Oxygen Flow Rate (L/min) 4 05/06/25 18:37 Temperature 98.3 F Temperature Source Pulse Rate 80 Respiratory Rate 18 Blood Pressure 110/85 H Blood Pressure Mean 93 Pulse Ox 100 Oxygen Delivery Method Oxygen Flow Rate (L/min) Positive well nourished and well developed General Appearance ED: well developed and NAD HEENT Reports moist mucous membranes Neck supple and no JVD Resp normal respiratory effort and clear to auscultation bilaterally Cardio regular rate and regular rhythm GI non-tender and non-distended Palpation: soft Back/Spine Back/Spine Narrative: There is no midline lumbar tenderness. There is no edema or ecchymosis. Range of motion was limited in all motions of the entire spine secondary to pain. Straight leg raises were negative bilaterally. General Back: CVA tenderness bilateral (Mild, right worse than left) Extremity normal to inspection General Extremety ED: Negative for edema or tenderness General Extremity: Negative for edema Neuro oriented x3, CN's II-XII intact bilaterally and no sensory deficits noted Sensorium / Orientation: alert Motor Exam: strength 5/5 throughout Psych mental status grossly normal MDM MDM MDM Narrative Medical decision making narrative: Differential diagnosis includes ureteral calculus, pyelonephritis, musculoskeletal pain, electrolyte abnormality, kidney injury. CBC will be obtained to assess for leukocytosis and an (more content not included)... Normal [facility] Eosinophil percentageOrdered By: Raza Estrella on 05-06-2025 Eosinophils/100 WBC (Bld) 2.8 % 0-5 [facility] Erythrocyte distribution wid th ratioOrdered By: Raza Estrella on 05-06-2025 Erythrocyte distribution width (RBC) [Ratio] 11.9 % 11.6-14.6 [facility] Erythrocyte distribution wid th standard deviationOrdered By: Raza Estrella on 05-06-2025 Erythrocyte distribution width (RBC) [Ratio] 38.6 fl 35.1-43.9 [facility] Glomerular filtration rate ( GFR) estimation/1.73 sq m using serum, plasma, or whole bOrdered By: Raza Estrella on 05-06-2025 GFR/1.73 sq M.predicted among non-blacks MDRD (S/P/Bld) [Vol rate/Area] 106 mL/min/{1.73_m2} >60 [facility] Comment on above: mL/min/1.73m2 CKD-EP I Creatinine Equation (2020) Hematocrit Auto (Bld) [Volum e fraction]Ordered By: Raza Estrella on 05-06-2025 Hematocrit (Bld) [Volume fraction] 37.9 % 37-47 [facility] Hemoglobin measurementOrdere d By: Raza Estrella on 05-06-2025 Hemoglobin (Bld) [Mass/Vol] 12.8 g/dL 12.0-15.0 [facility] Immature granulocytes/100 WB C Auto (Bld)Ordered By: Raza Estrella on 05-06-2025 Immature granulocytes/100 WBC (Bld) 0.100 % 0.0-0.9 [facility] Comment on above: IG% - Immature Granu locytes (promyelocytes, myelocytes and metamyelocytes) > 1% indicates that a LEFT SHIFT is Present. Ketones Test strip Ql (U)Ord ered By: Raza Estrella on 05-06-2025 Ketones Ql (U) Negative Negative [facility] MCV (mean corpuscular volume ) determinationOrdered By: Raza Estrella on 05-06-2025 MCV (RBC) [Entitic vol] 89.6 fL 81-99 [facility] Mean corpuscular hemoglobin (MCH) determinationOrdered By: Raza Estrella 05-06-2025 MCH (RBC) [Entitic mass] 30.3 pg 27.0-32.0 [facility] Mean corpuscular hemoglobin concentration (MCHC) determinationOrdered By: Raza Estrella on 05-06-2025 MCHC (RBC) [Mass/Vol] 33.8 g/dL 32-36 [facility] Mean platelet volume determi nationOrdered By: Raza Estrella 05-06-2025 Platelet mean volume (Bld) [Entitic vol] 10.2 fL 6.2-12.0 [facility] Microscopic analysis of urin e for red blood cells (RBC)Ordered By: Raza Estrella on 05-06-2025 Microscopic analysis of urine for red blood cells (RBC) 0-5 SEEN /hpf 0-5 [facility] Monocyte percentageOrdered B y: Raza Estrella on 05-06-2025 Monocytes/100 WBC (Bld) 7.7 % 0-10 [facility] Mucus LM Ql (Urine sed)Order ed By: Raza Estrella on 05-06-2025 Mucus Ql (Urine sed) 2+ /hpf [facility] Neutrophil percentageOrdered By: Raza Estrella on 05-06-2025 Neutrophils/100 WBC (Bld) 57.2 % 47-70 [facility] Nitrite Test strip Ql (U)Ord ered By: Raza Estrella on 05-06-2025 Nitrite Ql (U) Positive High Negative [facility] Nucleated red blood cell per centageOrdered By: Raza Estrella on 05-06-2025 Nucleated RBC/100 WBC (Bld) [Ratio] 0 % 0-5 [facility] Platelet countOrdered By: Charly Estrella on 05-06-2025 Platelets (Bld) [#/Vol] 275 10*3/uL 150-450 [facility] Potassium measurement (mass/ volume)Ordered By: Raza Estrella on 05-06-2025 Potassium (Unsp spec) [Mass/Vol] 3.4 mmol/L 3.3-5.1 [facility] ,Serum,hCG Quali.on 05-06-2025 HCG, SERUM QUAL Negative Normal [facility] Comment on above: Performed By: #### L 700.6800, L100.0100, L500.2500 #### [facility] [address] [place] [address], [address] Protein Test strip Ql (U)Ord ered By: Raza Estrella on 05-06-2025 Protein Ql (U) 30 mg/dl High Negative [facility] RBC Auto (Bld) [#/Vol]Ordere d By: Raza Estrella on 05-06-2025 RBC (Bld) [#/Vol] 4.23 10*6/uL 4.2-5.4 [facility] Serum beta-hCG test, qualita tiveOrdered By: Raza Estrella on 05-06-2025 Beta HCG ( test) Ql Negative [facility] Serum creatinine measurement (mass/volume)Ordered By: Raza Estrella on 05-06-2025 Creatinine [Mass/Vol] 0.72 mg/dL 0.70-1.20 [facility] Serum glucose measurement (m ass/volume)Ordered By: Raza Estrella on 05-06-2025 Glucose [Mass/Vol] 77 mg/dL 70-99 [facility] Serum or plasma calcium cody urement (mass/volume)Ordered By: Raza Estrella on 05-06-2025 Calcium [Mass/Vol] 9.0 mg/dL 7.6-11.0 [facility] Serum or plasma urea nitroge n measurement (mass/volume)Ordered By: Raza Estrella on 05-06-2025 Urea nitrogen [Mass/Vol] 16 mg/dL 4-19 [facility] Sodium levelOrdered By: Raza Estrella on 05-06-2025 Sodium [Moles/Vol] 139 mmol/L 133-145 [facility] Squamous epithelial cells de tection in urine sediment by light microscopyOrdered By: Raza Estrella on 05-06-2025 Epithelial cells.squamous LM Ql (Urine sed) 0-5 SEEN /hpf 5-10 [facility] Urinalysis, Completeon 05-06 EPI,SQUAMOUS 0-5 SEEN Normal 5-10 [facility] Comment on above: Order Comment: CLEAN CATCH Performed By: #### L 400.0001 #### [facility] [address] [place], [place], [id number] Mucus Ql (Urine sed) 2+ /hpf Normal [facility] Comment on above: Order Comment: CLEAN CATCH Performed By: #### L 400.0001 #### [facility] [address] [place], [address] BACTERIA 1+ /hpf Normal None Seen [facility] Comment on above: Order Comment: CLEAN CATCH Performed By: #### L 400.0001 #### [facility] [address] [place], [address] RBC 0-5 SEEN Normal 0-5 [facility] Comment on above: Order Comment: CLEAN CATCH Performed By: #### L 400.0001 #### [facility] [address] [place], [place], [id number] WBC 0-5 SEEN Normal 0-5 [facility] Comment on above: Order Comment: CLEAN CATCH Performed By: #### L 400.0001 #### [facility] [address] [place], [place], [id number] Urine clarityOrdered By: Marily Estrella on 05-06-2025 Clarity (U) Clear Clear [facility] Urine color determinationOrd ered By: Raza Estrella on 05-06-2025 Color (U) Yellow Yellow [facility] Urine glucose detectionOrder ed By: Raza Estrella on 05-06-2025 Glucose Ql (U) Normal mg/dl Normal [facility] Urine leukocyte esterase det ection by dipstickOrdered By: Raza Estrella on 05-06-2025 Leukocyte esterase Test strip Ql (U) Negative Negative [facility] Urine pHOrdered By: Raza barker on 05-06-2025 pH (U) 6.0 [pH] 5.0 - 8.0 [facility] Urine sediment bacteria coun t by microscopy (number/high power field)Ordered By: Raza Estrella on 05-06-2025 Bacteria LM.HPF (Urine sed) [#/Area] 1 /[HPF] None Seen [facility] Urine specific gravity measu rementOrdered By: Raza Estrella on 05-06-2025 Specific gravity (U) [Rel density] 1.025 1.002-1.030 [facility] Urine urobilinogen measureme ntOrdered By: Raza Estrella on 05-06-2025 Urobilinogen Ql (U) Normal mg/dl Normal [facility] White blood cell (WBC) count Ordered By: Raza Estrella on 05-06-2025 WBC (Bld) [#/Vol] 7.2 10*3/uL 4.4-11.0 [facility] White blood cell countOrdere d By: Raza Estrella on 05-06-2025 White blood cell count 0-5 SEEN /hpf 0-5 [facility] CONSULTon 06-23-2024 CONSULT ---- -------- Attestation signed by Glenn Garcia MD at 06/24/2024 10:50 AM I performed a history and exam of the patient and discussed the case with resident on 06-23-24. I reviewed the resident's note (see above) and agree with the documented findings and plan of care of Dr. de la torre. She has a left toe wound from a power manager that was just water. We will proceed with nonoperative management of this injury. She will be WBAT to the BLE. Alfredo Garcia M.D., F.A.A.O.S. [phone] office -------- Orthopedic Surgery Consult Assessment & Plan: This is a 44 y.o. female with left toe laceration, power washing injury In summary, this 44-year-old female presenting after a power washing injury. She states that this is only an injury with only water. She was given 7010 days of Keflex as well as IV antibiotics at the outside hospital prior to transfer. The wound was loosely approximated and soft dressings were applied. The patient is safe to follow-up outpatient. We had a long discussion about returning to the emergency department if she develops any fevers, chills, purulent discharge, or increasing pain within the left foot. Please reach out to our team with any questions or concerns regarding this patient. Abx: per ED physician , recommended 7-10 days of Keflex. Did receive a dose of IV and oral ABX at the OSH. Pain control: per ED physician Weight bearing: WBAT LLE Cast/splint care: Soft dressings - Ice and elevate the affected extremity above the heart to decrease pain and swelling. Ice for 20 mins on and off as much as tolerated - Signs and symptoms of compartment syndrome were discussed w/ the pt. If they have any of these they should return to the ER immediately Discharge: ortho stable for DC Follow up: Follow up with physician near [place] or [facility]. The office will call to schedule a follow up appointment if the patient is interested in traveling to [place] Thank you for the consult. Please feel free to call with questions. Discussed w/ Dr. Garcia and he agrees HPI: Joan Tang is a 44 y.o. female who presents to [facility] for evaluation of left toe pain and a laceration. She was at her home powerwashing and states she accidentally powerwashed over her foot. She states it was only water and that there was no Self mixed in the solution. She is transferred from [facility] after her imaging showed subcutaneous gas. Denies pain elsewhere. Denies any numbness or tingling in the left foot. States her pain is well-controlled at this time. Subsequently Orthopedic Surgery was consulted. History reviewed. No pertinent past medical history. History reviewed. No pertinent surgical history. No Known Allergies Social History Socioeconomic History Marital status: Tobacco Use Smoking status: Never Passive exposure: Never Smokeless tobacco: Never Vaping Use Vaping status: Never Used Substance and Sexual Activity Alcohol use: Never Drug use: Never Review of Systems: Gen: Denies fever, chills, nausea, and vomiting Neuro: Denies: tingling and numbness of extremity Physical Exam: Gen: no acute distress, alert, oriented x 3, appropriate mood and affect Lower Extremity Laterality: left Splint/Cast/Dressing: none Appearance: no gross deformity , she does have a small oblique laceration over the base of the third toe, see media below Skin: See media below, there is good hemostasis to her left third toe laceration Compartments: Compartments soft and compressible Tenderness: tender about laceration site Sensation: Sensation intact to light touch in L3-S1 distribution. Motor: Intact PF/DF/EHL. Vascular: 2+ PT/DP pulses, symmetrical bilaterally. Brisk capillary refill. Labs: CBC/Coag: Recent Labs 06/23/24 1341 WBC 6.64 HCT 37.3 PLT 245 BMP: Recent Labs 06/23/24 1350 BUN 10 CREATININE 0.67 Imaging: Imaging was obtained and includes: Radiographs were reviewed and show no acute osseous abnormalities of the left foot. She does have a moderate amount of soft tissue gas over the dorsum of the foot consistent with her mechanism of injury. Ryan De La Torre DO Orthopedic Surgery Resident This dictation was created using voice recognition software. While attempts have been made to review the dictation as it is transcribed, on occasion spoken words may be misinterpreted by the technology, leading to syntax errors, as well as omissions or substitutions with inappropriate words or phrases. In such instances, the original meaning may be extrapolated by contextual derivation. AUTHENTICATED BY GLENN GARCIA ON 06/24/2024 10:50:34 [facility] ED Prov Noteon 06-23-2024 ED Prov Note ED Physician Note: NAME: Joan Tang 44 y.o. CSN: [id number] PCP: No, Physician History: Chief Complaint: Laceration HPI/ROS: The history was obtained from the patient. Joan is a 44 y.o. female who presents with low pressure firer injury. Patient was using a 4000 PSI low pressure firer today and accidentally smoked across her left foot. She was seen at outside hospital and found to have significant soft tissue gas and transferred here for trauma evaluation. Patient notes he was only water and the low pressure firer without any solvents. She was given Keflex and subsequently IV Cipro at the outside facility and her tetanus was updated. Pain is currently mild. PMHx: History reviewed. No pertinent past medical history. PMSx: History reviewed. No pertinent surgical history. FAM. Hx: History reviewed. No pertinent family history. SOC. Hx: Social History Socioeconomic History Marital status: Tobacco Use Smoking status: Never Passive exposure: Never Smokeless tobacco: Never Vaping Use Vaping status: Never Used Substance and Sexual Activity Alcohol use: Never Drug use: Never MEDs: Previous Medications Medication Sig omeprazole (PRILOSEC) 20 MG capsule Take 1 (one) capsule (20 mg total) by mouth daily . ALL: No Known Allergies Physical Exam: Patient Vitals for the past 24 hrs: BP Temp Temp src Pulse Resp SpO2 06/23/24 1850 118/85 -- -- 75 17 100 % 06/23/24 1655 (!) 131/91 98.5 degrees F (36.9 degrees C) Oral 76 (!) 19 98 % Physical Exam Nursing note and Vital Signs Reviewed General: Awake and Alert. Cooperative. No acute distress. Head: Normocephalic, atraumatic. Eyes: EOM's grossly intact Neck: Supple, trachea midline. Heart: RRR, intact DP and PT pulses in the left lower extremity. Lungs: no hypoxia or distress Extremities: no gross deformities Skin: warm and dry, laceration to the dorsal aspect of the left third toe. Palpable soft tissue crepitance through the dorsum of the left foot to the level of the ankle joint. Neurologic: Sensation and motor function intact in the left lower extremity. Psychiatric: appropriate attention and speech Laboratory & Radiological Imaging (if done): Labs Reviewed - No data to display No orders to display Procedures Procedures ED Course / Medical Decision Making: I have reviewed the chief complaint, triage note, past medical/surgical, family, and social history. Medical Decision Making Patient presents as a transfer for high-pressure injury to the left foot. There is crepitus but no fracture on x-ray. Trauma and orthopedic teams have evaluated patient and recommend discharge with antibiotics. Counseled on return precautions and follow-up and discharged in good condition Amount and/or Complexity of Data Reviewed External Data Reviewed: radiology and notes. Discussion of management or test interpretation with external provider(s): Orthopedic resident Trauma surgeon Dr. Doe Risk Prescription drug management. Risk Details: Shared decision making utilized. Differential diagnosis includes was not limited to high-pressure injection injury, cellulitis, abscess, tissue necrosis. The patient has been informed that they may have pre-hypertension or hypertension based on a blood pressure reading in the Emergency Department. I recommend that the patient call the primary care provider listed on their discharge instructions or a physician of their choice as soon as possible to arrange follow-up in the next 4 weeks for further evaluation of possible pre-hypertension or hypertension. . Medications Ordered/Given During ED Visit Medications - No data to display Clinical Impression: 1. Exposure to high-pressure jet as cause of accidental injury at home as place of occurrence, initial encounter Disposition: Patient is discharged to home New Prescriptions cephALEXin (KEFLEX) 500 MG capsule Take 1 (one) capsule (500 mg total) by mouth 2 (two) times a day for 7 days . Benji Wiseman DO ED Attending Physician (Please note that portions of this note have been completed with a voice recognition software. Efforts were made to correct any errors, but occasionally words are mis-transcribed.) Khoa Wiseman DO 06/23/241899 AUTHENTICATED BY KHOA WISEMAN ON 06/23/2024 19:00:20 Normal [facility] ED Prov Note [place] ED Physician Note: NAME: Joan Tang 44 y.o. CSN: [id number] PCP: No, Physician ED Course / Medical Decision Making: Patient has a low pressure firer injury to the left foot. She has a fairly superficial laceration of the third toe. She is neurovascularly intact is full function of the foot. Initially she was given Keflex. X-ray shows a moderate amount of gas but no fracture or dislocation. Given the moderate amount of gas on the film and this is a low pressure firer injury felt it prudent to have patient evaluated by trauma services at [facility]. Went ahead and placed an IV and started Cipro. CBC chemistries are normal.. I discussed case with Patrizia trauma LATOYA line construction superintendent for trauma services at [facility]. She was in agreement to see this patient over at [facility]. Patient will go by private car. She will have somebody drive her. Patient is in agreement with transfer. Patient told not to eat or drink anything and go straight to [facility]. Last time she ate was 8 AM she had some Cheerios. Medical Decision Making Amount and/or Complexity of Data Reviewed Independent Historian: Details: Patient gave history Radiology: Details: reviewed Discussion of management or test interpretation with external provider(s): Discussed case with trauma services LATOYA Clinical Impression: 1. Laceration of left foot, initial encounter Disposition: Patient is being transfered to [facility]. History: Chief Complaint: Laceration HPI: The history was obtained from the patient. She is a 44 y.o. female who presents with a chief complaint of Laceration. HPI Patient comes in with left foot injury. Patient states she was pressure washing with flip-flops on. She hit her foot with the low pressure firer spray. She has a laceration to the third toe. She cleaned it with peroxide. Patient denies any cleaner carpet and upholstery and the low pressure firer but did use well water. She does not know when her last tetanus immunization was. She did not take anything for pain prior to coming to the ER. Last menstrual period 3 weeks ago and she denies PMHx: History reviewed. No pertinent past medical history. PMSx: History reviewed. No pertinent surgical history. FAM. Hx: History reviewed. No pertinent family history. SOC. Hx: Social History Socioeconomic History Marital status: Tobacco Use Smoking status: Never Passive exposure: Never Smokeless tobacco: Never Vaping Use Vaping status: Never Used Substance and Sexual Activity Alcohol use: Never Drug use: Never MEDs: Previous Medications Medication Sig omeprazole (PRILOSEC) 20 MG capsule Take 1 (one) capsule (20 mg total) by mouth daily . ALL: No Known Allergies ROS: Review of Systems Constitutional: Negative. Skin: Positive for wound. Negative for color change, pallor and rash. Neurological: Negative for weakness and numbness. All other systems reviewed and are negative. Positives and pertinent negatives as per HPI. All other systems were reviewed and are negative. Physical Exam: Patient Vitals for the past 24 hrs: BP Temp Temp src Pulse Resp SpO2 Height Weight 06/23/24 1249 (!) 123/56 98 degrees F (36.7 degrees C) Oral 88 16 100 % 5' 5" 62.6 kg (138 lb) Physical Exam Vitals and nursing note reviewed. Constitutional: General: She is not in acute distress. Appearance: She is not toxic-appearing. Musculoskeletal: Left foot: Normal range of motion and normal capillary refill. Laceration and tenderness present. No swelling, deformity, bunion, Charcot foot, foot drop, prominent metatarsal heads, bony tenderness or crepitus. Normal pulse. Skin: Findings: Wound present. No erythema or rash. Comments: 4 cm abrasion to the left third toe. No foreign body. Neurological: Mental Status: She is alert. Laboratory & Radiological Imaging (if done): Labs Reviewed POC BASIC METABOLIC PANEL - RALS - Normal Narrative: [facility] has implemented the eGFR calculation approach that does not have a coefficient for race that conforms to the NKF-ASN Task Force Recommendations. POC CBC AND DIFFERENTIAL POC BASIC METABOLIC PANEL XR Foot Left 3+ Views (Standard) Final Result No acute osseous abnormality. Moderate soft tissue gas. Workstation ID: [id number] Procedures: Procedures The patient has been informed that they may have pre-hypertension or hypertension based on a blood pressure reading in the Emergency Department. I recommend that the patient call the primary care provider listed on their discharge instructions or a physician of their choice as soon as possible to arrange follow-up in the next 4 weeks for further evaluation of possible pre-hypertension or hypertension. . Amanda Adan MD ED Physician [place] [facility] (Please note that portions of this note have been completed with a voice recognition software. Efforts were made to correct any errors, but occasionall (more content not included)... [facility] H AND Rinku 06-23-2024 H AND P ---- -------- Attestation signed by Olman Doe II, MD at 06/23/2024 7:38 PM Name: Joan Tang Admit date and time: 06/23/2024 4:47 PM Med rec: [id number] Please link this note as an addendum to the advanced practice provider/resident note with the date of service listed above. The patient was seen and evaluated by me at 1715 on 06/23/24 . I have reviewed, independently verified, and agree with the chief complaint, history, review of systems, examination, and the assessment and plan. pan washer injury to left toe. Orthopedics consulted. Admitted with these risk variables:None. Please see assessment and plan for further details. Olman Doe II, MD, MS, [facility] Trauma, Critical Care, & Acute Care Surgery -------- [facility], [facility] SURGERY TRAUMA EVALUATION / HISTORY AND PHYSICAL / CONSULT NOTE == Trauma Attending: Olman Doe MD MECHANISM OF INJURY: pan washer injury LOC (yes/no?): No Anticoagulant / Anti-platelet Rx None Reason/Dx: INJURIES: pan washer injury to left middle toe SURGERIES/PROCEDURES: Date Operation/Procedure Provider Name ACTIVE MEDICAL PROBLEMS: None INCIDENTAL FINDINGS: None == ADMISSION PLAN OF CARE: [discuss plan for each injury] pan washer injury to left middle digit Orthopedic surgery consult: Non-operative, close with sutures, 7-10 of keflex and f/u in ortho clinic. Spine clearance status: - Cervical spine is clear. Cervical collar is not on. - TLS-Spines are clear. Need for Restraints: no. Consultants notified (list specialty/name/time): - Orthopedics: Called by ED The laceration was repaired in the ED by Trauma surgery. Wound care instructions were provided to the patient. Disposition: Discharge Home with 7-10 days of keflex. Follow up in orthopedic surgery clinic. Monitor for s/s of compartment syndrome. Strict return precautions. == This patient is being seen by the Trauma Service either in the ED, ICU, TICU, or Floor ([id number]) CHIEF COMPLAINT: Left third digit pain Trauma Category: Consult HISTORY OF PRESENT ILLNESS / INJURY (HPI): Patient is a 44 year old female who presents with a low pressure firer injury to her left third digit. Earlier this afternoon she was using a 4000 PSI low pressure firer with flip flops when she accidentally hit her foot. She has had severe pain in the left third digit. She has had not taken anything for pain. There was no chemical solution in the low pressure firer only water. She states that the low pressure firer did not hit anything else. She did throw up once due to the pain but has no other complaints at this time PAST MEDICAL HISTORY (PMH): Medical history: None -LMP (females only): No LMP recorded (lmp unknown). -Last tetanus: Unknown Surgical history: Cholecystectomy, tubal ligation Social history: -Place of residence (home, SNF, etc): Home -Tobacco use: Denies -EtOH use: Denies -Drug use: Denies -Mental health history: Denies Family history: No cardiac disease. No cerebrovascular disease. No bleeding disorders. MEDICATIONS: Outpatient Medications as of 06/23/2024 Medication Sig omeprazole (PRILOSEC) 20 MG capsule Take 1 (one) capsule (20 mg total) by mouth daily . ALLERGIES: No Known Allergies REVIEW OF SYSTEMS: [List positives and pertinent negatives] Constitutional Symptoms: Eyes: Ears, Nose, Mouth, Throat: Cardiovascular: Respiratory: Gastrointestinal: Nausea Genitourinary: Musculoskeletal: Left foot pain Skin/Breast: Neurological: Psychiatric: Endocrine: Hematologic/Lymphatic: Allergic/Immunologic: Other than the above items, the remainder of a complete review of systems is otherwise negative. PHYSICAL EXAM: Initial Presenting VS: Temp: 98.5 F HR: 76 BP: 131/91 RR: 19 SpO2: 98 % PRIMARY SURVEY Airway Patent, trachea midline. Phonation is normal. Breathing Symmetric chest rise. Breath sounds present bilaterally. Circulation Pulses 2+ throughout. Disability Moves extremities normally x 4. No lateralizing neurologic signs. Pupils 2-3 mm equal and reactive bilaterally. Burchard Coma Scale EYES (4-spont, 3-to verb stim, 2-to pain, 1-none) 4 VERBAL (5-oriented, 4-confused, 3-inappropriate, 2-incomprehensible, 1-none) 5 MOTOR (6-follows, 5-localizes, 4-withdraws, 3-flexion, 2-extension, 1-none) 6 GCS: 15 SECONDARY SURVEY General Appears age appropriate. No distress, complaining of left foot pain HEENT Head normocephalic, PERRL, EOMI, mid face stable, tympanic membranes intact, no subconjunctival hemorrhage, nares patent bilaterally, no epistaxis, mouth clear of (more content not included)... Normal [facility] Chloride [Moles/Vol] 106 mmol/L Normal 98-108 [facility] Comment on above: Order Comment: [facility] has implemented the eGFR calculation approach that does not have a coefficient for race that conforms to the NKF-ASN Task Force Recommendations. CO2 [Moles/Vol] 24 mmol/L Normal 21-32 [facility] Comment on above: Order Comment: [facility] has implemented the eGFR calculation approach that does not have a coefficient for race that conforms to the NKF-ASN Task Force Recommendations. Creatinine [Mass/Vol] 0.67 mg/dL Normal 0.40-1.10 [facility] Comment on above: Order Comment: [facility] has implemented the eGFR calculation approach that does not have a coefficient for race that conforms to the NKF-ASN Task Force Recommendations. Glucose [Mass/Vol] 80 mg/dL Normal 65-99 [facility] Comment on above: Order Comment: [facility] has implemented the eGFR calculation approach that does not have a coefficient for race that conforms to the NKF-ASN Task Force Recommendations. POC GFR 111 mL/min/1.73 m2 Normal >=60 [facility] Comment on above: Order Comment: [facility] has implemented the eGFR calculation approach that does not have a coefficient for race that conforms to the NKF-ASN Task Force Recommendations. Result Comment: Estefania mated GFR was calculated using the 2020 CKD-EPI creatinine equation. POC IONIZED CALCIUM 4.6 mg/dL Normal 4.5-5.3 [facility] Comment on above: Order Comment: [facility] has implemented the eGFR calculation approach that does not have a coefficient for race that conforms to the NKF-ASN Task Force Recommendations. Potassium [Moles/Vol] 3.8 mmol/L Normal 3.5-5.1 [facility] Comment on above: Order Comment: [facility] has implemented the eGFR calculation approach that does not have a coefficient for race that conforms to the NKF-ASN Task Force Recommendations. Sodium [Moles/Vol] 139 mmol/L Normal 135-145 [facility] Comment on above: Order Comment: [facility] has implemented the eGFR calculation approach that does not have a coefficient for race that conforms to the NKF-ASN Task Force Recommendations. Urea nitrogen [Mass/Vol] 10 mg/dL Normal 8-25 [facility] Comment on above: Order Comment: [facility] has implemented the eGFR calculation approach that does not have a coefficient for race that conforms to the NKF-ASN Task Force Recommendations. POC CBC AND DIFFERENTIALon 0 06-23-2024 BASOPHILS ABSOLUTE COUNT 0.01 K/mcL Normal 0.00-0.30 [facility] Basophils/100 WBC (Bld) 0.2 % Normal [facility] Eosinophils (Bld) [#/Vol] 0.10 10*3/uL Normal 0.00-0.50 [facility] Eosinophils/100 WBC (Bld) 1.5 % Normal [facility] Erythrocyte distribution width (RBC) [Ratio] 12.2 % Normal 11.6-14.8 [facility] Hematocrit (Bld) [Volume fraction] 37.3 % Normal 36.0-46.0 [facility] Hemoglobin (Bld) [Mass/Vol] 12.4 g/dL Normal 12.0-16.0 [facility] IG ABSOLUTE 0.01 K/mcL Normal 0.00-0.30 [facility] IG PERCENT 0.20 % Normal [facility] Comment on above: Result Comment: The IG parameter is the percentage of metamyelocytes, myelocytes and promyelocytes. An immature granulocyte count (IG) of 1% or more suggests the possibility of infection, an IG count of 3% is very likely related to an infection. Lymphocytes (Bld) [#/Vol] 1.64 10*3/uL Normal 0.90-4.00 [facility] Lymphocytes/100 WBC (Bld) 24.7 % Normal [facility] MCH (RBC) [Entitic mass] 30.7 pg Normal 26.0-34.0 [facility] MCV (RBC) [Entitic vol] 92.3 fL Normal 80.0-100.0 [facility] MEAN CORPUSCULAR HEMOGLOBIN CONC 33.2 g/dL Normal 31.0-37.0 [facility] Monocytes (Bld) [#/Vol] 0.35 10*3/uL Normal 0.30-0.90 [facility] Monocytes/100 WBC (Bld) 5.3 % Normal [facility] NEUTROPHILS ABSOLUTE COUNT 4.53 K/mcL Normal 1.70-7.00 [facility] Neutrophils/100 WBC (Bld) 68.1 % Normal [facility] Platelet mean volume (Bld) [Entitic vol] 9.4 fL Normal 9.4-12.4 [facility] Platelets (Bld) [#/Vol] 245 10*3/uL Normal 150-400 [facility] RBC (Bld) [#/Vol] 4.04 10*6/uL Normal 4.00-5.20 [facility] WBC (Bld) [#/Vol] 6.64 10*3/uL Normal 4.50-11.00 [facility] XR FOOT LEFT 3+ VIEWS (STAND ALPHONSE)on 06-23-2024 XR FOOT LEFT 3+ VIEWS (STANDARD) EXAMINATION: XR FOOT LEFT 3+ VIEWS (STANDARD) 06/23/2024 1:08 pm HISTORY: ORDERING SYSTEM PROVIDED HISTORY: low pressure firer injury to foot cut third toe, TECHNOLOGIST PROVIDED HISTORY: Injury/Trauma Reason for exam: low pressure firer to the foot today has large wound/lac over the 3rd digit with pain bruising and tightness in the metacarpals Cancer History: n Surgery, RadiationHistory: n Encounter Type: Initial Mechanism of injury: low pressure firer ORDERING SYSTEM PROVIDED DIAGNOSIS CODES: COMPARISON: None. FINDINGS: No acute fracture or dislocation.Intact joint spaces.Moderate amount of soft tissue gas mostly surrounding the metatarsals and phalanges of the 2nd, 3rd, and 4th toes. IMPRESSION: No acute osseous abnormality. Moderate soft tissue gas. Workstation ID: [id number] Dictated by: MEGAN FELIZ on [facility] Jun 23, 2024 1:31:10 PM EDT Transcribed by: MEGAN FELIZ on [facility] Jun 23, 2024 1:31:10 PM EDT Finalized by: MEGAN FELIZ on [facility] Jun 23, 2024 1:31:10 PM EDT Normal [facility] Comment on above: Order Comment: Injur y/Trauma or Illness?:Injury/Trauma How long have you had these symptoms (acute/chronic)?:Acute Reason for exam?:low pressure firer to the foot today has large wound/lac over the 3rd digit with pain bruising and tightness in the metacarpals History of cancer?:n Surgeries, chemotherapy, or radiation?:n Type of Exam?:Initial Mechanism of injury?:low pressure firer Provider Note - ED v3on - Provider Note - ED v3 Provider Note: Results/Vital Signs: Pediatric Clinical Scoring (DELILAH) is no recent DELILAH charted on this account Chart Review: ED NOTES ED NOTES: Patient presents for evaluation of left side neck pain and painful swallowing that has been ongoing for the past 2 days. Pt states symptoms are improved by ibuprofen. Denies any fever, cough, body aches, ear pain, pain with movement of neck, or any other associated symptoms. No known ill contacts. HISTORY OF PRESENTING ILLNESS JOAN is a 43 year old Female and was seen by me at 09-Jun-2023 12:46. Triage Information: Most recent Vital Sign Value Date PAST MEDICAL HISTORY ALLERGIES/INTOLERANCES: No Known Allergies HEALTH HISTORY: No documented data. OUTPATIENT MEDICATIONS: Home Medications Review Status for Reconciliation: Complete Med Status: Patient Currently Takes Medications Drug Name: omeprazole Instructions: null Drug Name: ZyrTEC Instructions: null Drug Name: Vitamin B-12 Instructions: null Drug Name: Medrol Dosepak 4 mg oral tablet Instructions: Take as directed. 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 HENMT: Airway patent, ears with clear tympanic membranes bilaterally. Nasal mucosa clear. Mouth with normal mucosa. Throat has no vesicles, no oropharyngeal exudates and uvula is midline. Face with L cervical lymphadenopathy. EYES: Clear bilaterally, pupils equal, round and reactive to light. CARDIOVASCULAR: Normal rate, regular rhythm. Heart sounds S1, S2. No murmurs, rubs or gallops. PMI non-displaced. NEUROLOGICAL: Alert and oriented, no focal deficits, no motor or sensory deficits. SKIN: Skin normal color for race, warm, dry and intact. No evidence of trauma. PSYCHIATRIC: Alert and oriented to person, place, time/situation. normal mood and affect. No apparent risk to self or others. HEME/LYMPH: L cervical lymphadenopathy. CRITICAL CARE VITAL SIGNS: T PRBP SpO2O2(LPM) %FiO2 Method 09-Jun-2023 12:38:[id number] 98 MDM MDM/ED COURSE: Discussed Findings with: patient Data Reviewed: vital signs Treatment Plan: Rx Medrol dose ced and Zofran ODT. Patient's clinical presentation is otherwise unremarkable at this time. Patient is discharged with instructions to follow-up with primary care or seek emergency medical attention for worsening symptoms or any new concerns. DISPOSITION Diagnosis/Annotation: ED Dx Name:Lymphadenopathy of left cervical region Code:R59.0 Disposition: discharged Type: home CONSULT CRITICAL CARE TIME Is this a critically ill patient: no Electronic Signatures: Ryan Paulino (MILLER SUPERVISOR-NEWSPAPER STUFFER) (Signed 09-Jun-2023 13:13) Authored: ED Notes, HPI, PMH, ROS, PE, Results/Vital Signs, MDM/ED Course, Clinical Impression, Attestation, Chart Review, Scores Last Updated: 09-Jun-2023 13:13 by Ryan Paulino (MILLER SUPERVISOR-NEWSPAPER STUFFER) [facility] Provider Note - ED v3on 05- Provider Note - ED v3 Provider Note: Chart Review: ED NOTES ED NOTES: Patient presents today with complaint of back pain x1 day. States that she was reaching over to drop something into a drawer and had a sharp stabbing pain on the right lower back that now radiates down her leg. She rates the pain a 10 out of 10. She is having pain radiate down the back of her leg to her knee and is having some tingling into her right and left hand as well. Patient states that she had a back injury several years ago after falling off a horse but otherwise she has been healthy and well. Patient exercises on a daily basis. HISTORY OF PRESENTING ILLNESS JOAN is a 42 year old Female and was seen by me at 14-Mar-2023 10:11. Triage Information: Most recent Vital Sign Value Date PAST MEDICAL HISTORY ALLERGIES/INTOLERANCES: No Known Allergies HEALTH HISTORY: No documented data. OUTPATIENT MEDICATIONS: Home Medications Review Status for Reconciliation: Complete Med Status: Patient Currently Takes Medications Drug Name: omeprazole Instructions: null Drug Name: ZyrTEC Instructions: null SIGNIFICANT EVENTS: Past Medical History Description:PT DENIES Past Surgical History Description:PARTIAL TUBAL, APPENDECTOMY Description:Cholecystect liza, WISDOM TEETH Social/Behavioral Description:PT DENIES REVIEW OF SYSTEMS All other systems reviewed and are negative REVIEW OF SYSTEMS: Comments See HPI PHYSICAL EXAM CONSTITUTIONAL: Well appearing, well nourished, awake, alert, oriented to person, place, time/situation and in no apparent distress. CARDIOVASCULAR: Normal rate, regular rhythm. Heart sounds S1, S2. No murmurs, rubs or gallops. PMI non-displaced. RESPIRATORY: Breath sounds clear and equal bilaterally. MUSCULOSKELETAL: Musculoskeletal Exam: (Tenderness on the right lower backApproximately at the SI area. Patient complains of radiation of pain to the front.And radiation of pain down the right lower leg to the knee. TShe states with standing and walking she does have radiation of pain to the lastToes #3 4 and 5.Normal DTRs bilaterally. Positive weakness to the right lower extremity.Positive straight leg raise on the right. Negative cross straight leg raise.) CRITICAL CARE VITAL SIGNS: T PRBP SpO2O2(LPM) %FiO2 Method 14-Mar-2023 09:32:[id number]/86 MDM MDM/ED COURSE: Treatment Plan: I had a thorough discussion with the patient about acute back pain. Unfortunately acute back injuries last 4 to 6 weeks. We discussed the pros and cons of an x-ray today and since there is no trauma I do not think an x-ray is necessary at this time. X-ray could be considered in the future if necessary. Today we will give her 60 mg of Toradol IM x1. Patient will be started on a prednisone taper and be given a muscle relaxer Robaxin. Patient will also be given a prescription for antinausea Zofran and meloxicam for ongoing pain management. Patient was instructed on back exercises to do and stretching. Patient should use ice heat as needed. Also encouraged the use of a inversion table. Patient may need to follow-up with a chiropractor in the next few days and primary care physician. DISPOSITION Diagnosis/Annotation: ED Dx Name:Acute low back pain Code:M54.50 Disposition: discharged CONSULT CRITICAL CARE TIME Is this a critically ill patient: no Electronic Signatures: Yanet Rivera (PAC) (Signed 14-Mar-2023 10:21) Authored: ED Notes, HPI, PMH, ROS, PE, Results/Vital Signs, MDM/ED Course, Clinical Impression, Attestation, Chart Review, Scores Last Updated: 14-Mar-2023 10:21 by Yanet Rivera (PAC) [facility] .GFRon 10-01-2019 GFR 117 ml/min/1.73sqm Normal [facility] ([place]) Comment on above: Result Comment: GFR Population mean for , Non- Americans Ages 20-29 = 116 mL/min/1.73 sq.m. Ages 30-39 = 107 mL/min/1.73 sq.m. Ages 40-49 = 99 mL/min/1.73 sq.m. Ages 50-59 = 93 mL/min/1.73 sq.m. Ages 60-69 = 85 mL/min/1.73 sq.m. Ages 70+ = 75 mL/min/1.73 sq.m. Chronic Kidney Disease: Less than 60 mL/min/1.73 square meters End Stage Renal Disease: Less than 15 mL/min/1.73 square meters Performed By: #### B MP, GFR #### [address] [address] GFR Non- 96 ml/min/1.73sqm Normal [facility] ([place]) Comment on above: Result Comment: GFR Population mean for , Non- Americans Ages 20-29 = 116 mL/min/1.73 sq.m. Ages 30-39 = 107 mL/min/1.73 sq.m. Ages 40-49 = 99 mL/min/1.73 sq.m. Ages 50-59 = 93 mL/min/1.73 sq.m. Ages 60-69 = 85 mL/min/1.73 sq.m. Ages 70+ = 75 mL/min/1.73 sq.m. Chronic Kidney Disease: Less than 60 mL/min/1.73 square meters End Stage Renal Disease: Less than 15 mL/min/1.73 square meters Performed By: #### B MP, GFR #### [address] [address] BMPon 10-01-2019 Calcium [Mass/Vol] 9.5 mg/dL Normal 8.4-10.2 [facility] ([place]) Comment on above: Performed By: #### B MP, GFR #### [address] [address] Chloride [Moles/Vol] 103 mmol/L Normal 98-107 [facility] ([place]) Comment on above: Performed By: #### B MP, GFR #### [address] [address] CO2 [Moles/Vol] 29 mmol/L Normal 22-29 [facility] ([place]) Comment on above: Performed By: #### B MP, GFR #### [address] [address] Creatinine [Mass/Vol] 0.68 mg/dL Normal 0.55-1.02 [facility] ([place]) Comment on above: Performed By: #### B MP, GFR #### [address] [address] Electrolyte Balance 7.0 mEq/L Normal [facility] ([place]) Comment on above: Performed By: #### B MP, GFR #### [address] [address] Glucose [Mass/Vol] 91 mg/dL Normal 70-105 [facility] ([place]) Comment on above: Performed By: #### B MP, GFR #### [address] [address] Potassium [Moles/Vol] 4.1 mmol/L Normal 3.5-5.1 [facility] ([place]) Comment on above: Performed By: #### B MP, GFR #### [address] [address] Sodium [Moles/Vol] 139 mmol/L Normal 136-145 [facility] ([place]) Comment on above: Performed By: #### B MP, GFR #### [address] [address] Urea nitrogen [Mass/Vol] 9 mg/dL Normal 7-18 [facility] ([place]) Comment on above: Performed By: #### B MP, GFR #### [facility] [address] [place], [place] [id number] Urea nitrogen/Creatinine [Mass ratio] 13 ratio Normal 7-27 [facility]) Comment on above: Performed By: #### B MP, GFR #### [facility] [address] [place] [id number] SOFT TISSUE NECK W/ CONTR Liam 10-01-2019 CT SOFT TISSUE NECK W/ CONTRAST ORIGINAL CT SOFT TISSUE NECK WITH IV CONTRAST: CLINICAL STATEMENT: neck pain/swellingTwo lumps on left side of neck behind chin pt noticed on Tuesday, Comparison: None TECHNIQUE: Multiple-row detector helical CT examination of the neck with IV contrast. Nonionic intravenous contrast material was administered per standard departmental protocol. This exam was performed according to our departmental dose optimization program, and includes the following measures where applicable: automated exposure control, adjustment of the mAs and/or kVp according to patient size and/or exam, and an iterative reconstruction algorithm. FINDINGS: A spot the dot marker is noted overlying the LEFT sternocleidomastoid muscle with no underlying radiographic abnormality. The parotid, submandibular, and thyroid gland are unremarkable. There is no evidence of a neck mass. There are no abnormally enlarged lymph nodes. The aerodigestive tract is symmetric without abnormal enhancement. The tonsillar tissue is unremarkable. Mild mucosal thickening is seen within the RIGHT maxillary sinus. The visualized portions of the paranasal sinuses are otherwise predominantly clear. The visualized intracranial contents are grossly unremarkable. The intraorbital contents are within normal limits. There is extensive streak artifact from dental amalgam. Limited evaluation of the upper lung donohue demonstrates no gross abnormality. IMPRESSION: No acute finding. No radiographic abnormality underlying the spot the dot marker in the LEFT anterior lateral neck region. I have personally reviewed the images of this examination and agree with the resident's findings and interpretation. Interpreted By: Rajani Upton MD Preliminary Report By: Steve Peng MD Electronically Signed By: Rajani Upton MD Dictated Date: 10/01/2019 5:25:59 PM Prelim Date: 10/01/2019 5:29:20 PM Sign Date: 10/01/2019 6:41:13 PM Ordering Provider:Mart Matta [facility] ([place]) Vital Signs Date Time Vital Sign Value Performing Clinician Facility 05-13-2025 11:36-0400 Body height 167.[address] Raza sEtrella DO Work Phone: 4(634)697-640360 [place] [address] 05-13-2025 11:30-0400 Body mass index (BMI) [Ratio] 24.2 kg/m2 Dr. Raza Estrella DO Work Phone: 4(714)217-781460 [place] [address] 05-13-2025 11:30-0400 Body weight 68.[address] Raza Estrella DO Work Phone: 9(620)504-710860 [place] [address] 05-13-2025 11:30-0400 Diastolic blood pressure 72 mm[Hg] Dr. Raza Estrella DO Work Phone: 1(611)289-736260 [place] [address] 05-13-2025 11:30-0400 Systolic blood pressure 104 mm[Hg] Dr. Raza Estrella DO Work Phone: 0(102)379-180860 [place] [address] 05-06-2025 18:37-0400 Body temperature 98.3 [degF] Dr. Raza Estrella DO Work Phone: 2(170)541-697660 [place] [address] 05-06-2025 18:37-0400 Diastolic blood pressure 85 mm[Hg] Dr. Raza Estrella DO Work Phone: 2(560)722-949760 [place] [address] 05-06-2025 18:37-0400 Heart rate 80 /min Dr. Raza Estrella DO Work Phone: 5(849)561-742060 [place] [address] 05-06-2025 18:37-0400 Respiratory rate 18 /min Dr. Raza Estrella DO Work Phone: 8(734)[phone] [place] [address] 05-06-2025 18:37-0400 SaO2% (BldA) [Mass fraction] 100 % Dr. Raza Estrella DO Work Phone: 9(621)731-062960 [place] [address] 05-06-2025 18:37-0400 Systolic blood pressure 110 mm[Hg] Dr. Raza Estrella DO Work Phone: 4(910)410-069860 [place] [address] 05-06-2025 15:57-0400 Inhaled oxygen flow rate 4 L/min Dr. Raza Estrella DO Work Phone: [facility] 05-06-2025 13:57-0400 Body height 167.[address] Raza Estrella DO Work Phone: [facility] 05-06-2025 13:57-0400 Body mass index (BMI) [Ratio] 23.7 kg/m2 Dr. Raza Estrella DO Work Phone: [facility] 05-06-2025 13:57-0400 Body weight 66.[address] Raza Estrella DO Work Phone: [facility] 06-09-2023 14:38-0400 Body height 170 cm No Pcp Required [facility] 06-09-2023 14:38-0400 Body temperature 97.88 [degF] No Pcp Required [facility] 06-09-2023 14:38-0400 Diastolic blood pressure 79 mm[Hg] No Pcp Required [facility] 06-09-2023 14:38-0400 Heart rate 83 /min No Pcp Required [facility] 06-09-2023 14:38-0400 SaO2% (BldA) [Mass fraction] 98 % No Pcp Required [facility] 06-09-2023 14:38-0400 Systolic blood pressure 113 mm[Hg] No Pcp Required [facility] 04-13-2021 21:15-0400 Diastolic blood pressure 67 mm[Hg] No Pcp Required [facility] 04-13-2021 21:15-0400 Heart rate 70 /min No Pcp Required [facility] 04-13-2021 21:15-0400 Respiratory rate 20 /min No Pcp Required [facility] 04-13-2021 21:15-0400 SaO2% (BldA) [Mass fraction] 97 % No Pcp Required [facility] 04-13-2021 21:15-0400 Systolic blood pressure 123 mm[Hg] No Pcp Required [facility] 04-13-2021 14:28-0400 Body height 167.6 cm No Pcp Required [facility] 04-13-2021 14:28-0400 Body temperature 97.52 [degF] No Pcp Required [facility] 04-13-2021 14:28-0400 Body weight 62.7 kg No Pcp Required [facility] 04-13-2021 13:43-0400 Body height 168 cm No Pcp Required [facility] 04-13-2021 13:43-0400 Body temperature 97.34 [degF] No Pcp Required [facility] 04-13-2021 13:43-0400 Diastolic blood pressure 73 mm[Hg] No Pcp Required [facility] 04-13-2021 13:43-0400 Heart rate 75 /min No Pcp Required [facility] 04-13-2021 13:43-0400 Systolic blood pressure 110 mm[Hg] No Pcp Required [facility] Encounters Encounter Date Encounter Type Care Provider Facility Start: 05-13-2025 ambulatory No Primary Car e Physician Facility:[facility] Start: 05-13-2025 End: 05-13-2025 Patient encounter procedure Cindy WANG [facility] @ Start: 05-13-2025 End: 05-13-2025 Patient encounter status Cindy WANG [facility] Start: 05-13-2025 End: 05-13-[address] Raza Estrella DO Work Phone: -[facility] @ Start: 05-06-2025 End: 05-06-2025 Emergency department patient visit Dr. Raza Estrella DO Work Phone: -Emergency Department Work Phone: Start: 06-23-2024 End: 06-23-2024 Emergency department patient visit BASSEM URRUTIA [facility] Start: 06-23-2024 End: 06-23-2024 Emergency department patient visit AMANDA ADAN [facility] Start: 06-09-2023 End: 06-09-2023 Emergency department patient visit Ryan Paulino [facility] Start: 03-14-2023 End: 03-14-2023 Emergency department patient visit Ms. Yanet Rivera Facility:[id number] Start: 04-13-2021 End: 04-13-2021 Emergency department patient visit Ryan Paulino [facility] Procedures Date Procedure Procedure Detail Performing Clinician Start: 05-06-2025 CT of abdomen and pe lvis without contrast Dr. Raza Estrella DO Work Phone: Start: 05-06-2025 Urnls dip stick/tabl et reagent auto microscopy Dr. Raza Estrella DO Work Phone: Start: 05-06-[address] Raza Estrella DO Work Phone: Start: 04-13-2021 End: 04-13-2021 EKG impression Stephen Rosa Plan of Treatment Date Care Activity Detail Author Start: 05-06-2025 [facility] Start: 04-13-2021 End: 04-14-2022 Sodium Chloride 0.9% Infusion . ; IV Bag Volume = 1,000 mL Run at: 125 mL/hr IntraVenous Start: 13-Apr-2021 End: 13-Apr-2022 Ordered: 13-Apr-2021 Stephen Rosa Intent [facility] CBC W Auto Different ial panel - Blood [facility] Chlamydia deoxyribon ucleic acid detection [facility] Comprehensive metabo lic 1999 panel - Serum or Plasma [facility] Hepatitis C virus RNA assay [facility] Lipid 1996 panel - S narendra or Plasma [facility] Liquid based cervica l cytology screening [facility] MG Breast - bilatera l Screening [facility] Patient Education ED Flank Pain, Uncertain Cause [facility] Work Phone: Serologic test for syphilis [facility] T4 free measurement [facility] Thyroid stimulating hormone measurement [facility] US Pelvis [facility] Vitamin B12 measurement [facility] Vitamin D, 25-hydrox y measurement [facility] Payers Date Payer Category Payer Self-pay 2023 Private Health Insurance [id number] 2015 Unknown [id number] 1980 Unknown [id number] [id number] 1980 Unknown [id number] 2.16.8 [id number] 1980 Unknown [id number] 2.16. [id number] 1980 Unknown [id number] 2.16. [id number] Private Health Insurance [id number] Unknown Unknown [id number] 2.16.8 [id number] Unknown [id number] 2.16.8 [id number] Unknown [id number] 2.16.8 [id number] Social History Date Type Detail Facility [facility] Tobacco smoking consumption unknown [facility] Start: 04-13-2021 End: 05-13-2025 Ex-smoker [facility] Start: 1980 Sex Assigned At Female W [facility] Gender Identity Identifies as fe male gender (finding) [facility] Radiology Diagnostic study note 05-06-2025 Note Date & Type Note Facility 05-06-2025 Radiology Diagnostic study note [facility] Imaging Services [address] [place] [address] Abdomen/Pelvis without Cont MR#: [id number] Acct: [id number] Name: JOAN TANG Rep #: [id number] : 1980 F 44 From: Marko Murdock MD PCP: Care Physician,No Primary Status: REG ER Study:Abdomen/Pelvis without Cont Date of Exa m: 05/06/25 Exam# [id number] Ordering Dr: Raza Estrella DO PROCEDURE: ABDOMEN/PELVIS WITHOUT CONT 05/06/2025 REASON FOR EXAM: FLANK PAIN TECHNIQUE: ABDOMEN/PELVIS WITHOUT CONT Noncontrast technique limits evaluation of the abdominal and pelvic viscera. Coronal and Sagittal reconstruction series were provided. One or more dose reduction techniques were used (e.g., Automated exposure control, adjustment of the mA and/or kV according to patient size, use of iterative reconstruction technique). RADIATION DOSE SUMMARY: CTDlvol: 6.17 mGy DLP: 291.1 mGycm COMPARISON: None. FINDINGS: Lung bases: Clear. Liver: Unremarkable. Gallbladder: Surgically absent. Spleen: Normal size and morphology. Pancreas: Unremarkable. Adrenals: Unremarkable. Kidneys: Normal in size. No urolithiasis or hydroureteronephrosis identified oneither side. Few scattered pelvic phleboliths noted. Bladder: Unremarkable, no bladder calculus is seen. Reproductive Organs: Uterus and adnexae appear within normal limits. Bowel: Unremarkable. No evidence of obstruction or active inflammatory process. Appendix is surgically absent with pericecal chain suture material. Lymph nodes: No suspicious lymph node enlargement. Vasculature: The abdominal aorta and IVC contours are normal. Noncontrast technique otherwise limits evaluation. Peritoneum / Retroperitoneum: No ascites or free air. Bones: No significant abnormality. CT/Abdomen/Pelvis without Cont IMPRESSION: No bowel obstruction or active inflammatory process identified. No urolithiasis or hydroureteronephrosis on either side. Reading Location: [id number] CC: Dr. 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 Pre-procedure verification: - Correct patient, correct site, correct procedure (correct patient verified against two identifiers: name and date of ) - H&P or H&P update complete and in medical record - Consent form completed and signed: Yes - Informed consent risks: bleeding, pain, infections, vascular compromise - Review of: Radiology images, scans, labs, pathology, biopsy reports with appropriate identifiers (if applicable) - Any required blood products, implants, devices, and/or special equipment for the procedure (if applicable) 2. Site Markings - when appropriate: N/A 3. Time Out: 1800 (Includes validating the following: Correct patient, correct side/site marked and procedure to performed, correct position) Other: Hand Hygiene completed Procedure completed using maximum barrier precautions Indications: Simple laceration. Procedure Details: Patient's left second dorsal toe exposed, positioned,and prepped using betadine.Landmarks were palpated and skin was appropriately marked as needed. For this procedure 5 cc of 1% Lidocaine without Epinephrine was used. Wound was thoroughly irrigated using 200cc of saline solution. Laceration was repaired in 2 layers: 1st layer using 3-0 vicryl in a simple interrupted fashion, 2nd layer using 4-0 monocryl in a simple interrupted fashion. Minimal amount of bleeding occurred, controlled with direct pressure. Wound covered with petroleum gauze and kerlix dressing and bacitracin. Estimated Blood Loss: Minimal Complications: None Ramesh Gonzáles MD [phone] AUTHENTICATED BY OLMAN DOE II, ON 08/06/2024 00:38:25 [facility] Ambulatory Evaluation note Note Date & Type Note Facility Evaluation note No assessment information availa ble [facility] Work Phone: Evaluation note Note Date & Type Note Facility Evaluation note Diagnosis Onset Date Resolution Hair loss acute May 13 10:58am Metrorrhagia acute May 13, 2 025 10:58am Encounter for routine gynecological examination noneactive May 13, 2025 10:58am [facility] Work Phone: Reason for referral (narrative) Note Date & Type Note Facility Reason for referral (narrative) No reason for referral information available [facility] Work Phone: Summary Purpose Family History No Family History Records FoundNo Family History Records FoundNo Family History Records FoundNo Family History Records FoundNo Family History Records Found Advance Directives No Advanced Directives Records Found Advance Directive Response Recorded Date/ Time Do you have a Healthcare Power of Relief Salesperson? 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) May 13, 2025 10:5 8am Reason for Visit Admit Date Hair loss May 13, 2025 10:5 8am Metrorrhagia May 13, 2025 10:5 8am Encounter for routine gynecological exam ination May 13, 2025 10:58am Additional Source Comments INFORMATION SOURCE (unrecogn ized section and content) DATE CREATED AUTHOR 10/02/2019 [facility] ([place]) DATE CREATED AUTHOR AUTHOR'S ORGANIZ ATION 06/10/2023 [facility] DATE CREATED AUTHOR AUTHOR'S ORGANIZ ATION 06/30/2024 [facility] DATE CREATED AUTHOR AUTHOR'S ORGANIZ ATION 08/07/2024 [facility] DATE CREATED AUTHOR AUTHOR'S ORGANIZ ATION 05/14/2025 [facility] <item><item><item> Privacy Markings (unrecogniz ed section and content) Section Author: Traci Brennan PROHIBITION ON REDISCLOSURE OF CONFIDENTIAL INFORMATION This notice accompanies a disclosure of information concerning a client made to you with the consent of such client. Section Author: Traci Brennan PROHIBITION ON REDISCLOSURE OF CONFIDENTIAL INFORMATION This notice accompanies a disclosure of information concerning a client made to you with the consent of such client. Section Author: Traci Brennan PROHIBITION ON REDISCLOSURE OF CONFIDENTIAL INFORMATION This notice accompanies a disclosure of information concerning a client made to you with the consent of such client. Care Teams (unrecognized sec tion and content) Team Status: Active Member Role/Relationship Status Dates No Primary Care Physician Primary Care Provider Active Team Status: Inactive Member Role/Relationship Status Dates Dr. Raza Estrella , Emergency Provider Active Start: May 06, 2025 End: May 06, 2025 No Primary Care Physician Primary Care Provider Active Start: May 06, 2025 End: May 06, 2025 Team Status: Inactive Member Role/Relationship Status Dates Dr. Raza Estrella , DO Attending Provider Active Start: May 06, 2025 End: May 06, 2025 Dr. Raza Estrella , Emergency Provider Active Start: May 06, 2025 End: May 06, 2025 No Primary Care Physician Primary Care Provider Active Start: May 06, 2025 End: May 06, 2025 Team Status: Inactive Member Role/Relationship Status Dates FELIPE Guerrier Attending Provider Active Start: May 13, 2025 End: May 13, 2025 No Primary Care Physician Primary Care Provider Active Start: May 13, 2025 End: May 13, 2025 No Primary Care Physician Referring Provider Active Start: May 13, 2025 End: May 13, 2025 Goals (unrecognized section and content) Goals may be documented in a n alternate sectionGoals may be documented in an alternate section FOR RECORDS PERTAINING TO PATIENTS WHO ARE OR HAVE BEEN ENROLLED IN A CHEMICAL DEPENDENCY/SUBSTANCEABUSE PROGRAM, SOME INFORMATION MAY BE OMITTED. This clinical summary was aggregated from multiple sources. Caution should be exercised in using it in the provision of clinical care. This summary normalizes information from multiple sources, and as a consequence, information in this document may materially change the coding, format and clinical context of patient data. In addition, data may be omitted in some cases. CLINICAL DECISIONS SHOULD BE BASED ON THE PRIMARY CLINICAL RECORDS. [employer] provides no warranty or guarantee of the accuracy or completeness of information in this document.
[2025-05-17 11:21] LABS: HIV Nonreactive (Nonreactive); Hepatitis B Surface Antigen Nonreactive (Nonreactive); Syphilis Antibodies Nonreactive (Nonreactive)
[2025-05-17 11:27] LABS: AST(SGOT) 20 U/L (<=31); Alanine Aminotransfer ALT/SGPT 17 U/L (<=34); Albumin, Serum 4.2 g/dL (3.5-5.0); Alkaline Phosphatase 80 U/L (35-104); Anion Gap 11 (5-15); BUN 17 mg/dL (4-19); BUN/Creat Ratio 22.2 RATIO (10-20); Calcium,Total 9.2 mg/dL (7.6-11.0); Carbon Dioxide 24.1 mmol/L (21.0-32.0); Chloride 103 mmol/L (98-108); Cholesterol 165 mg/dL (<=200); Globulin 2.5 g/dL (2.2-4.2); Glucose 87 mg/dL (70-99); Low Density Lipoprotein Calc. 92 mg/dL; Potassium 4.2 mmol/L (3.3-5.1); Triglycerides 61 mg/dL; Very Low Density Lipoprotein 12 mg/dL (5-40); Vitamin B12 690 pg/mL (180-914); Vitamin D,25 Hydroxy 28.6 ng/mL (30-100); cholesterol:hdl ratio screen 2.71
[2025-05-20 12:52] LABS: HCV Quant. RNA PCR HCV Not Detected IU/mL (.)
== END | disposition home or self-care (01) ==
PROVIDERS: Referring Provider Nurse Practitioner Family; Visit Provider Nurse Practitioner Family
DX: Z12.31 Encounter for screening mammogram for malignant neoplasm of breast (principal); L65.9 Nonscarring hair loss, unspecified; N92.1 Excessive and frequent menstruation with irregular cycle; Z13.220 Encounter for screening for lipoid disorders; Z13.29 Encounter for screening for other suspected endocrine disorder; Z20.2 Contact with and (suspected) exposure to infections with a predominantly sexual mode of transmission
CPT/HCPCS: 36415; 77063; 77067; 80053; 80061; 82306; 82607; 84439; 84443; 85025; 86695; 86696; 86703; 86780; 87340; 87522